=== PATIENT | male | born 1950 | race African-American/Black ===

== ENCOUNTER 2017-02-18 18:27 | Inpatient (IN) | payer OTHER, MEDICARE ==
[~2017-02-18] VITALS: Ht 170.2 cm; Wt 86.2 kg
--- NOTE | 2017-02-18 18:43 | NUR ---
REVEIVED 66 YO MALE WITH . PT COMES TO THE ED BECAUSE HIS SON THINKS HE MAY BE HAVING THOUGHTS OF HURTING HIMSELF. ACCORDING TO , PT IS HEARING VOICES. PT DENIES THOUGHT OF SUICIDE OR HEARING VOICES.
--- NOTE | 2017-02-18 19:27 | NUR ---
AT BEDSIDE TO MELVA AT THIS TIME
--- NOTE | 2017-02-18 19:38 | ED PSYCHIATRIC COMPLAINT ---
History of Present Illness General Chief Complaint: Psychiatric Related Complaint Stated Complaint: THOUGHTS OF HARMING SELF Source: patient Exam Limitations: no limitations Vital Signs & Intake/Output Vital Signs & Intake/Output Vital Signs Date Time Temp Pulse Resp B/P Pulse O2 O2 Flow FiO2 Ox Delivery Rate 02/19 1554 98.6 76 18 152/98 98 Room Air 02/19 1410 97.1 81 18 136/63 96 Room Air 02/19 1226 97.0 85 18 220/100 02/19 1121 97.0 85 18 220/100 95 Room Air 02/19 1020 85 190/82 02/19 0848 98.0 110 200/110 02/19 0631 96.6 65 16 176/80 98 Room Air 02/18 2327 96.3 80 16 186/81 97 Room Air 02/18 1929 Room Air 02/18 1855 98.6 78 18 176/98 97 Room Air ED Intake and Output 02/19 0000 02/18 1200 Intake Total 0 Output Total Balance 0 Intake, Oral 0 Patient 190 lb Weight Allergies Coded Allergies: No Known Allergies (02/18/17) Triage Note: REVEIVED 66 YO MALE WITH . PT COMES TO THE ED BECAUSE HIS SON THINKS HE MAY BE HAVING THOUGHTS OF HURTING HIMSELF. ACCORDING TO , PT IS HEARING VOICES. PT DENIES THOUGHT OF SUICIDE OR HEARING VOICES. Triage Nurses Notes Reviewed? yes HPI: Patient presents for evaluation of possible suicide ideation. The patient himself however denies any intent for suicide. Apparently he was engaging in a discussion with his son who is an CLIN APPLICATION SPECIALIST. He mentioned that he thought he heard somebody talking to him suggesting that he would by suicide. He also states that they were according Bible verses to him. He also describes a "funny pain "in the top portion of his head and a question of muffling of his voice that have now resolved. The patient denies drug or alcohol use. He is currently being treated for nervous breakdowns, schizophrenia and bipolar disorder along with diabetes and hypertension. He is compliant with medications. (TEVIN RUBALCAVA,CAR Tellez) Past History Travel History Traveled to [place] past 21 day No Medical History Any Pertinent Medical History? see below for history Neurological: CVA VS SEIZURE EENT: NONE Cardiovascular: hypertension Respiratory: NONE Gastrointestinal: NONE Hepatic: NONE Renal: NONE Musculoskeletal: NONE Psychiatric: bipolar disease Endocrine: NONE Blood Disorders: NONE Cancer(s): NONE Psychosocial History What is your primary language Iraqi Tobacco Use: Quit >30 days ago Family History Hx Contributory? No (TEVIN RUBALCAVA,CAR Tellez) Surgical History Surgical History: non-contributory (HALLIE RUBALCAVA,IRMA Pittman) Review of Systems Review of Systems Constitutional: Reports: no symptoms. EENTM: Reports: no symptoms. Respiratory: Reports: no symptoms. Cardiovascular: Reports: no symptoms. GI: Reports: no symptoms. Genitourinary: Reports: no symptoms. Musculoskeletal: Reports: no symptoms. Skin: Reports: no symptoms. Neurological/Psychological: Reports: see HPI. Hematologic/Endocrine: Reports: no symptoms. Immunologic/Allergic: Reports: no symptoms. All Other Systems: Reviewed and Negative (TEVIN RUBALCAVA,CAR Tellez) Physical Exam Physical Exam General Appearance: SEE BELOW Neurological/Psychiatric: SEE BELOW Comments: General: Alert, calm, cooperative Head: Normocephalic, atraumatic Eyes: Normal inspection, no nystagmus, EOMI Ears: Normal inspection Nose: Normal inspection Throat: Moist mucosa Neck: Supple, no goiter Heart: Regular rate and rhythm, no murmurs rubs or gallops Lungs: Clear to auscultation bilaterally with good air entry Abdomen: Soft nontender nondistended, normal bowel sounds Chest: Nontender Extremities: Normal range of motion grossly, no tremors present, no cyanosis clubbing or edema of the upper extremities Neurologic: cranial nerves II through XII grossly intact, speech clear, gait normal Psychiatric: No apparent delusions or hallucinations, no pressured speech or thought blocking SAD PERSONS Done? REFERRED TO CRISIS (TEVIN RUBALCAVA,CAR Tellez) Progress Plan of Care: Orders Procedure Date/time Status Consistent Carbohydrate 3 02/19 D Active Regular Diet 02/19 B Complete Admit to inpatient psych 02/19 1623 Active Lab Add-on Test 02/19 1406 Active Patient Data - inpatient psych 02/19 1405 Active Admit to inpatient psych 02/19 1405 Active URINE DRUG SCREEN FOR ER ONLY 02/19 0829 Complete Vital Signs 02/19 UNK Active Nursing Misc 02/19 UNK Active FingerStick- Glucose 02/19 UNK Active Alternative Nursing Therapy 02/19 UNK Active Activity/Ambulation 02/19 UNK Active Continuous Observation Monitor 02/18 2322 Active TSH REFLEX 02/18 2114 Active LIPID PANEL 02/18 2114 Active GLYCOSYLATED HGB 02/18 2114 Active ETHANOL 02/18 2100 Active CBC WITHOUT DIFFERENTIAL 02/18 2100 Complete BASIC METABOLIC PANEL 02/18 2100 Active ED CRISIS PSYCH CONSULT 02/18 2100 Active Intake & Output 02/18 1925 Active Current Medications Sig/Neel Start time Last Medication Dose Stop Time Status Admin Amlodipine Besylate 10 MG DAILY 02/20 1000 AC (Norvasc) Perphenazine 8 MG DAILY@0800 02/20 0800 CAN (Trilafon) Lamotrigine 200 MG BID 02/19 2200 AC (LaMICtal) Perphenazine 24 MG AT BEDTIME 02/19 2200 AC (Trilafon) Acetaminophen 650 MG Q6P PRN 02/19 141 AC (Tylenol) Al Hydroxide/Mg 30 ML Q4-6 PRN PRN 02/19 141 AC Hydroxide (Maalox Plus) Benztropine Mesylate 1 MG Q6P PRN 02/19 141 AC (Cogentin 1 MG Tablet) Gabapentin 300 MG Q4P PRN 02/19 141 AC (Neurontin) Magnesium Hydroxide 30 ML AT BEDTIME PRN 02/19 141 AC (Milk Of Magnesia) Trazodone HCl 50 MG AT BEDTIME NEED.. 02/19 141 AC (Desyrel) Laboratory Tests 02/19/17 1115: Urine Opiates Screen < 100.00, Methadone Screen < 40, Barbiturate Screen < 60, Ur Phencyclidine Scrn < 6.00, Amphetamines Screen < 100, U Benzodiazepines Scrn < 85, Urine Cocaine Screen < 50, Urine Cannabis Screen < 5.00 02/18/172113: Anion Gap 9, Estimated GFR 35 L, BUN/Creatinine Ratio 11.6, Glucose 225 H, Hemoglobin A1c Pending, Calcium 9.0, Triglycerides 155 H, Cholesterol 180, LDL Cholesterol, Calc 104, HDL Cholesterol 45, Cholesterol/HDL Ratio 4, TSH &T3 & Free T4 Intrp 1.480, CBC w Diff NO MAN DIFF REQ, RBC 4.23 L, MCV 80.7, MCH 27.5 , RDW 15.1 H, MPV 7.5, Gran % 69.9, Lymphocytes % 23.0, Monocytes % 4.4, Eosinophils % 1.8, Basophils % 0.9, Absolute Granulocytes 4.5, Absolute Lymphocytes 1.5, Absolute Monocytes 0.3, Absolute Eosinophils 0.1, Absolute Basophils 0.1, PUBS MCHC 34.1, Serum Alcohol < 10.0 Differential Diagnosis: depression, drug abuse, etoh vs other. Hand-Off Endorsed To: CAR HOLLINGSWORTH DO Endorsed Time: 0700 Pending: consult (HALLIE RUBALCAVA,IRMA Pittman) Departure Departure Disposition: STILL A PATIENT Condition: Stable Clinical Impression Primary Impression: Schizophrenia Qualifiers: Schizophrenia type: unspecified Qualified Code: F20.9 - Schizophrenia, unspecified Secondary Impressions: Anemia Qualifiers: Anemia type: unspecified type Qualified Code: D64.9 - Anemia, unspecified Renal insufficiency Referrals: RITA RUBALCAVA,SHYANN Lima (PCP/Family) Departure Forms: Customer Survey General Discharge Information (TEVIN RUBALCAVA,CAR Tellez) Departure Comments 02/19/17 1:27 PM The patient was signed out to me by Dr. Hernandez at 7 AM. He is pending evaluation by crisis. He did have an elevated glucose and elevated blood pressure. He was treated with his amlodipine and given 8 units of regular insulin. 02/19/17 4:24 PM The patient's glucose is coming down, his blood pressures has come down he is being admitted to Inpatient Psychiatry. (CAR HOLLINGSWORTH DO)
--- NOTE | 2017-02-18 21:20 | NUR ---
LABS SENT (1SST,1LAV)
[2017-02-18 21:21] LABS: ABSOLUTE BASOPHIL COUNT 0.1 /CUMM (0.0-0.2); ABSOLUTE EOSINOPHIL COUNT 0.1 /CUMM (0.0-0.7); ABSOLUTE GRANULOCYTE CT 4.5 /CUMM (1.4-6.5); ABSOLUTE LYMPH COUNT 1.5 /CUMM (1.2-3.4); ABSOLUTE MONOCYTE COUNT 0.3 /CUMM (0.10-0.60); BASOPHIL % 0.9 % (0.0-2.0); EOSINOPHIL % 1.8 % (0-5); GRANULOCYTE % 69.9 % (42.2-75.2); HEMATOCRIT 34.1 % (42-52); MEAN CORPUSCULAR HGB 27.5 PG (27.0-31.0); MEAN CORPUSCULAR HGB CONC 34.1 G/DL (33.0-37.0); MEAN CORPUSCULAR VOLUME 80.7 FL (80.0-94.0); MEAN PLATELET VOLUME 7.5 FL (7.4-10.4); PLATELET COUNT 194 /CUMM (130-400); RBC DISTRIBUTION WIDTH 15.1 % (11.5-14.5); RED BLOOD CELL CT 4.23 /CUMM (4.70-6.10); WHITE BLOOD CELL COUNT 6.5 /CUMM (4.8-10.8)
--- NOTE | 2017-02-18 21:36 | NUR ---
FIRE CREW SPECIALIST MEETING WITH PT AT THIS TIME.
--- NOTE | 2017-02-18 22:51 | ED PSY CRISIS COLLATERAL NOTE ---
Collateral Note Collateral Note Family/Inform/Canelo Contacts: collateral provided by pt byron jarquin [phone]. She reports being to pt for 47 yrs. She reports past 45 yrs pt has struggled with mental illness. she reports he has had several psychiatric hospitalizations over the yrs. she reports the past 6 yrs have been progressively most difficult as pt has been more combative verbally and physically threatening. She reports pt is becoming more isolative/withdrawn and delusional. she reports he talks for hrs with imaginary people. She is concerned that pt is gravely disabled and no longer able to care for himself and she doesn't know how much longer she can reside in the home with him due to his constant yelling, threatening and accusations. She thinks pt needs to be in an assisted living setting with 24 hr care/supervision. she reports he came to ED this evening because he reported to his son over the phone today that he is hearing voices telling him his life is going to end by suicide.
--- NOTE | 2017-02-19 | NUR ---
PT RESTING COMFORTABLY ON STRETCHER. AWAKE, ALERT AND ORIENTED. CALM AND COOPERATIVE. PROVIDED WITH WATER.
--- NOTE | 2017-02-19 01:50 | NUR ---
PT ASLEEP AT THIS TIME WITH REGULAR RR. WILL CTM.
--- NOTE | 2017-02-19 03:47 | NUR ---
PT CONTINUES TO SLEEP WITH REGULAR RR. NO ACUTE DISTRESS NOTED. SITTER AT BEDSIDE
--- NOTE | 2017-02-19 06:32 | NUR ---
AWAKENED FOR VS OFFERS NO COMPLAINTS.
--- NOTE | 2017-02-19 07:21 | NUR ---
PT SLEEPING AT THIS TIME. REG RESP RATE NOTED. SITTER REMAINS PRESENT. WILL CTM
--- NOTE | 2017-02-19 08:30 | NUR ---
Crisis waiting on UTOX to be completed.
--- NOTE | 2017-02-19 08:52 | NUR ---
PT CLAPPING HANDS LAYING ON STRETCHER AT THIS TIME, PT STATING "IM JUST PRAYING" WHEN ASKED PT IF HE WOULD LIKE TO EAT BREAKFAST TRAY PT RESPONDS "IM ON A FAST RIGHT NOW, IM NOT EATING" LARA REMAINS PRESENT, MD AWARE
--- NOTE | 2017-02-19 09:06 | ED PSY CRISIS COLLATERAL NOTE ---
Collateral Note Collateral Note Family/Inform/Canelo Contacts: Clinician called Dr. Lopez PCP for collateral information and left a voice mail. [phone] Hernandez - pt's psychiatrist.
--- NOTE | 2017-02-19 09:19 | NUR ---
PT'S SON CALLED TO SPEAK WITH PT. ASKED PT IS HE WOULD LIKE TO SPEAK WITH SON AND PT SAID "I WILL CALL HIM BACK."
--- NOTE | 2017-02-19 10:22 | NUR ---
PT REMAINS HYPERTENIVE. AWARE. AWAITING ORDERS
--- NOTE | 2017-02-19 10:32 | NUR ---
PT AWARE OF NEED FOR URINE SAMPLE. PER PT HE WILL TRY TO GO IN A FEW
--- NOTE | 2017-02-19 11:22 | NUR ---
URINE COLLECTED AND SENT TO LAB BY MILAGRO CARSON
--- NOTE | 2017-02-19 11:50 | NUR ---
Crisis attempted to complete eval. Pt requested winery worker come back later.
--- NOTE | 2017-02-19 12:26 | NUR ---
PT MEDICATED PER EMAR AT THIS TIME
--- NOTE | 2017-02-19 12:43 | ED PSYCH CRISIS CONSULTATION ---
Crisis Consult Basic Assessment Date of Consult: 02/19/17 Responsible Person/Accompanied By: Insurance Authorization: Insurance #1: Insurance name: MEDICARE A Phone number: Policy number: [id number] Group number: Authorization number: ED Provider: Patient's ED Provider: CAR ABARCA MD Primary Care Physician: Patient's PCP: SHYANN SALINAS MD PCP's Current Psychiatrist: Dr. Hernandez Chief Complaint: Psychiatric Related Complaint Patient's Quote: " When can I leave?" Present Illness: Pt is 66 yomarried male with hx of schizophrenia. He was brought to the ED by his who reports he has been . His UTOX is negative for substances. Pt is responding to internal stimuli ( singing, laughing and talking to self ) however denies these behaviors. Per pt , his family is concerned because a voice was telling him he would by suicide. This signwriter asked how long he has heard theses voices and he stated this was the first encounter. Pt appears to be minimizing AVH symtpoms. Per collateral with his and son Winston on the phone: Family denies hx of domestic violence and physically abuse. He believes multiple people come to the house. He was hospitalized 4 months ago in November for a month [facility] psych unit [facility]term. Pt presents with paranoia at home and thinks people are out to get him. Zoranna feels her safety is at risk because he is associating her with his paranoid delusions but he is verbally abusive- daily. Pt appears to take medications as prescribed. He had Vna for a month but insurance did not cover extended coverage. They are applying for medicaid. Winston Jr thinks the main issue is the medications. feels he is gravely disabled, he puts something on the stove and walks away. pt is also unsteady on his feet sometimes so they are trying to keep him driving and keep the keys from him. Family reports hx of him saying the voices tell him to kill himself. Pt has never attempted suicide. is very concerned as the pt thinks she is apart of this whole thing and pt has limited supports. Per family report his current medications: risperdol 3 mg 1 tab 2x daily seroquel 25 mg 1-2 by mouth at bed time trazadone 50 mg - talke 1 1/2 25 mg at bed time perpahnazine- 8 mg 3 tabs at bed time pt has 2 bottles of it the other say 16 mg type 2 diabetes insulin- [address] Arsalan Hernandez is on vacation but Dr. Mcdonald is psychiatric nurse practitioner : [phone] . This signwriter left a message for both providers. Patient's Address: [address] [place] [address] Other Phone Number: Who Do You Live With? Spouse Family/Informants Interviewed: Everna- Winston dorsey- son Allergies - Coded Allergies: No Known Allergies (02/18/17) Past History Past Medical History Neurological: CVA VS SEIZURE EENT: NONE Cardiovascular: hypertension Respiratory: NONE Gastrointestinal: NONE Hepatic: NONE Renal: NONE Musculoskeletal: NONE Psychiatric: bipolar disease Endocrine: NONE Blood Disorders: NONE Cancer(s): NONE Past Surgical History Surgical History: non-contributory Psychosocial History Strengths/Capabilities: Pt is seeking inpatient tx for mood stabilization and safety. Physical Limitations (Interventions): unknown Psychiatric Treatment History Psych Treatment Psychiatric Treatment Yes Inpatient Treatment Yes Outpatient Treatment Yes Location of Treatment Dr. Hernandez in [facility] Reason for Treatment psych Dates of Treatment 1999- current Response to Treatment fair Diagnosis by History: schizophrenia Substance Use/Abuse History Drug Use/Abuse Substances Used/Abused No Substance Abuse Treatment Substance Abuse Treatment Past Substance Abuse [place] No Inpatient Treatment No Outpatient Treatment No Comments: Pt reports he has not used substances in over 40 years. Current Mental Status Mental Status Orientation: Confused Affect: WNL Speech: Mumbled, WNL Neuro-vegetative: Sleep Disturbance Appearance Appearance- Dress/Hygiene: Pt is dressed in [facility] gown, hygiene is fair. Behaviors Thought Process: Irrational Thought Content: Auditory Hallucinations, Delusions, Paranoid, Visual Hallucinations Memory: Impaired Insight: Poor SI/HI Risk Assessment Past Suicidal Ideation/Attempts Yes Current Suicidal Ideation/Att No Past Homicidal Ideation/Att: No Current Homicidal Ideation/Attempts No Degree of Intent: Pt said a command voice told him he would by suicide. Danger To: Self Gravely Disabled: Lack of Insight, Poor Judgment Risk Factors: age (under 24/over 65), SA/MH hospitalized, isolate/no social support, male, limited support Lethality Ratin PTSD Checklist PTSD Done? pt unable to participate ED Management Sitter: Yes Restraints: No DSM5/PS Stressors/Medical Prob Diagnosis' (DSM 5, Stressors, Medical): F20.89 Schizophrenia medical: type 2 diabetes psychosocial: problems with primary supports, limited social supports Current GAF: 25 Comments: Pt is observed to respond to AVH. He appears to minimize his symptoms and denies visual hallucinations. Pt disclosed hearing a command voice telling him he would by suicide. Departure Disposition Psych Medical Clearance Date: 02/19/17 Medically Cleared at: 1145 Time Started: 1145 Time Ended: 1245 Psychiatrist Consulted: Gerson Celestin MD Date Disposition Established: 02/19/17 Time Disposition Established: 1330 Plan for Disposition - Modality: Inpatient Psychiatry Facility: [facility] Contact: CPS Rationale for Disposition: Pt presents with AVH ( talking to himself, laughing and singing in his room). He reported a command voice told him he would by suicide. Pt appears to minimize symptoms of schizophrenia. The reports her concern for her safety as his paranoid delusions are associated with her and he accuses her verbally. She stated he reports that people come into the apartment and she is one of them. Dr. Celestin was consulted and recommends inpatient treatment. The pt initially was in disagreement with signing in voluntary but spoke with his family and thought it was best to receive treatment at this time for mood stabilization and safety. Type of IP Admission: Voluntary Referrals RITA RUBALCAVA,SHYANN Lima (PCP/Family)
--- NOTE | 2017-02-19 14:48 | IP CRISIS DIAG ASSESS PSYCH ---
Diagnostic Assessment Basic Assessment Insurance Authorization: Insurance #1: Insurance name: MEDICARE A [employer] Phone number: Policy number: [id number] Group number: Authorization number: QMB - no authorization required Primary Care Physician: Patient's PCP: SHYANN SALINAS MD PCP's Patient's Quote: " When can I leave?" Present Illness: Pt is 66 yomarried male with hx of schizophrenia. He was brought to the ED by his who reports he has been . His UTOX is negative for substances. Pt is responding to internal stimuli ( singing, laughing and talking to self ) however denies these behaviors. Per pt , his family is concerned because a voice was telling him he would by suicide. This blog writer asked how long he has heard theses voices and he stated this was the first encounter. Pt appears to be minimizing AVH symtpoms. Per collateral with his and son Winston on the phone: Family denies hx of domestic violence and physically abuse. He believes multiple people come to the house. He was hospitalized 4 months ago in November for a month [facility] psych unit senior care. Pt presents with paranoia at home and thinks people are out to get him. Deon feels her safety is at risk because he is associating her with his paranoid delusions but he is verbally abusive- daily. Pt appears to take medications as prescribed. He had Vna for a month but insurance did not cover extended coverage. They are applying for medicaid. Winston Jr thinks the main issue is the medications. feels he is gravely disabled, he puts something on the stove and walks away. pt is also unsteady on his feet sometimes so they are trying to keep him driving and keep the keys from him. Family reports hx of him saying the voices tell him to kill himself. Pt has never attempted suicide. is very concerned as the pt thinks she is apart of this whole thing and pt has limited supports. Per family report his current medications: risperdol 3 mg 1 tab 2x daily seroquel 25 mg 1-2 by mouth at bed time trazadone 50 mg - talke 1 1/2 25 mg at bed time perpahnazine- 8 mg 3 tabs at bed time pt has 2 bottles of it the other say 16 mg type 2 diabetes insulin- [address] Arsalan Hernandez is on vacation but Dr. Mcdonald is lockstitch front edge tape sewer : [phone] . This blog writer left a message for both providers. Patient's Address: [address] [place] [address] Other Phone Number: Who Do You Live With? Spouse Feel Safe Where You Live? Yes Feel Safe in Your Relationship Yes Marital Status: Do You Have Children? Yes Ages? 40 and 50's Primary Language? Monegasque Language(s) Spoken At Home: Monegasque Family/Informants Interviewed: Everna- Winston dorsey- son Allergies - Coded Allergies: No Known Allergies (02/18/17) Past History Abuse/Trauma History Trauma History/Current Trauma: Denies Legal History Current Legal Status: none Psychosocial History Strengths/Capabilities: Pt is seeking inpatient tx for mood stabilization and safety. Physical Limitations (Interventions): unknown Psychiatric Treatment History Psych Treatment Psychiatric Treatment Yes Inpatient Treatment Yes Outpatient Treatment Yes Location of Treatment Dr. Hernandez in [facility] Reason for Treatment psych Dates of Treatment 1999- current Response to Treatment fair Diagnosis by History: schizophrenia Risk Factors: age (under 24/over 65), SA/MH hospitalized, isolate/no social support, male, limited support Substance Use/Abuse History Drug Use/Abuse minimum 12mo Hx Substances Used/Abused No Substance Abuse Treatment Substance Abuse Treatment Past Substance Abuse [place] No Inpatient Treatment No Outpatient Treatment No Comments: Pt reports he has not used ETOH or cannabis in over 40 years. Sexual History Sexually Active No # of partners 0 Sexual Orientation Heterosexual Use of Protection No Sexual Concerns: No Education History Highest Level of Education: master's degree, Pt reports he also earned a PHD Preferred Learning Style: visual, auditory Current Mental Status Mental Status Orientation: Confused Affect: WNL Speech: Mumbled, WNL Neuro-vegetative: Sleep Disturbance Appearance Appearance- Dress/Hygiene: Pt is dressed in [facility] gown, hygiene is fair. Behaviors Thought Process: Irrational Thought Content: Auditory Hallucinations, Delusions, Paranoid, Visual Hallucinations Memory: Impaired Insight: Poor SI/HI Risk Assessment - Minimum 6mo History- Past Suicidal Ideation/Attempts Yes Current Suicidal Ideation/Att No Past Homicidal Ideation/Att: No Current Homicidal Ideation/Attempts No Degree of Intent: Pt said a command voice told him he would by suicide. Danger To: Self Gravely Disabled: Lack of Insight, Poor Judgment Risk Factors: age (under 24/over 65), SA/MH hospitalized, isolate/no social support, male, limited support Lethality Ratin Needs/Init TX Plan/Goals: Inpatient treatment for mood stabilization and safety, medication evaluation , group and individual therapy, family meeting and psychoeducation. AUDIT-C Questionnaire: AUDIT-C Questionnaire: Response Value ETOH use in the past year Never 0 # drinks typical/day Doesn't Drink 0 6 or > drinks per occasion Never 0 Total 0 DSM5/PS Stressors/Medical Prob Diagnosis' (DSM 5, Stressors, Medical): F20.89 Schizophrenia medical: type 2 diabetes psychosocial: problems with primary supports, limited social supports Current GAF: 25 Comments: Pt is observed to respond to AVH. He appears to minimize his symptoms and denies visual hallucinations. Pt disclosed hearing a command voice telling him he would by suicide.
--- NOTE | 2017-02-19 15:16 | SOCIAL WORKER SOCIAL HX PSYCH ---
Social History Basic Assessment Insurance Authorization: Insurance #1: Insurance name: [employer] [facility] Phone number: Policy number: [id number] Group number: Authorization number: [id number] no authorization required Curr Source of Income/Entitlements: SSDI, SSI Primary Care Physician: Patient's PCP: SHYANN SALINAS MD PCP's Present Problem: Pt is 66 yomarried male with hx of schizophrenia. He was brought to the ED by his who reports he has been . His UTOX is negative for substances. Pt is responding to internal stimuli ( singing, laughing and talking to self ) however denies these behaviors. Per pt , his family is concerned because a voice was telling him he would by suicide. This technical proposal writer asked how long he has heard theses voices and he stated this was the first encounter. Pt appears to be minimizing AVH symtpoms. Per collateral with his and son Winston on the phone: Family denies hx of domestic violence and physically abuse. He believes multiple people come to the house. He was hospitalized 4 months ago in November for a month [facility] psych unit half-way. Pt presents with paranoia at home and thinks people are out to get him. Zoranna feels her safety is at risk because he is associating her with his paranoid delusions but he is verbally abusive- daily. Pt appears to take medications as prescribed. He had Vna for a month but insurance did not cover extended coverage. They are applying for medicaid. Winston Jr thinks the main issue is the medications. feels he is gravely disabled, he puts something on the stove and walks away. pt is also unsteady on his feet sometimes so they are trying to keep him driving and keep the keys from him. Family reports hx of him saying the voices tell him to kill himself. Pt has never attempted suicide. is very concerned as the pt thinks she is apart of this whole thing and pt has limited supports. Per family report his current medications: risperdol 3 mg 1 tab 2x daily seroquel 25 mg 1-2 by mouth at bed time trazadone 50 mg - talke 1 1/2 25 mg at bed time perpahnazine- 8 mg 3 tabs at bed time pt has 2 bottles of it the other say 16 mg type 2 diabetes insulin- [address] Arsalan Hernandez is on vacation but Dr. Mcdonald is health commissioner : [phone] . This technical proposal writer left a message for both providers. Primary Language? Honduran Language(s) Spoken At Home: Honduran Living Situation Rents or Owns Home? owns Feel Safe Where You Are Living Yes Feel Safe in Relationships? Yes Comments: Pt has been for 40 years. Allergies - Coded Allergies: No Known Allergies (02/18/17) Past History Past Medical History Neurological: CVA VS SEIZURE EENT: NONE Cardiovascular: hypertension Respiratory: NONE Gastrointestinal: NONE Hepatic: NONE Renal: NONE Musculoskeletal: NONE Psychiatric: bipolar disease Endocrine: NONE Blood Disorders: NONE Cancer(s): NONE Past Surgical History Surgical History: non-contributory /Family History Place/Country of Origin: [place] Childhood Family Constellation: Pt reports a happy childhood with his mother. He stated he grew up as an only child. His parents were never and his father was not involved. Primary Childhood Caretakers: mother Family Life During Childhood: Pt reports a happy child llamas. He said his mother kept him in line. DCF Involvement? No Mother's Age (Current/): 90 (mother is ) Relationship w/Mother: Good relationship. Mom is now. Relationship w/Father: Father was not involved. Any Sibling(s)? No Relationship w/Friends: Pt has limited social supports. Family Psych/Sub Abuse/Add Hx: Pt denies family history of MH/SA and self harming behaviors. Abuse/Trauma History Trauma History/Current Trauma: Denies Legal History Current Legal Status: none Pending Court Dates: Denies Have you ever been arrested No Hx of Juvenile Legal Charges? No Hx of Adult Legal Charges? No Civil Proceedings: Denies Domestic Relations Court: Denies Child Protective Serv Involvmnt Denies Telesales Advisor Denies Psychosocial History Primary Support System: , daughter, son Strengths/Capabilities: Pt is seeking inpatient tx for mood stabilization and safety. Weaknesses: insight into illness Physical Limitations (Interventions): unknown Last Physical: 2016 History of Seizures? No History of Blackouts? No ADL Limitations: Denies issues [place]/Social/Peer Relations limited Meaningful Activities: Reading Childhood Restoration: Amish Current Congregation Affiliation: Amish Is Spirituality Important to You? Very important. Pt stated he is a born again Amish Patient's Ethnicity: Cultural/Ethnic Issues: No Are There Developmental Issues? No Milestones Achieved: fine motor, gross motor Psychiatric Treatment History Psych Treatment Inpatient Treatment Yes Outpatient Treatment Yes Location of Treatment Dr. Hernandez in [facility] Reason for Treatment psych Dates of Treatment 1999- current Response to Treatment fair Current Psychiatric Orderly: Dr. Hernandez Treatment of Prior Episodes: [facility] - half-way Diagnosis: schizophrenia Psychodynamic Issues: unable to assess Risk Factors: age (under 24/over 65), SA/MH hospitalized, isolate/no social support, male, limited support Substance Use/Abuse History Drug Use/Abuse Substance Used/Abused Alcohol First Use teens Last Used 24 yo How much used/taken minimal How often socially For how long 10 years Route of use oral Have Had Periods of Sobriety? 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 No Explain: Pt has obstained from using ETOH and substances Have You Ever Attended AA? No Do You Attend AA Currently? No Do You Have a Sponsor? No Other Community Resources Used: None Symptoms of Use: Pt reports no issues with substances as he has found god. Substance Abuse Treatment Substance Abuse Treatment Inpatient Treatment No Outpatient Treatment No Sexual History Sexually Active No # of partners 0 Sexual Orientation Heterosexual Use of Protection No Sexual Concerns: No Education History Highest Level of Education: master's degree, Pt reports he also earned a PHD Highest Grade Completed: Pt reports hD in Theology Vocational Year Completed: NA Number of College Years: 4 College Degree/Major: theology Preferred Learning Style: visual, auditory HX of Learning Difficulties: None reported Barriers to Learning: None reported Special Communication Needs: None reported Employment History Employment Disability Not in Labor Force: Disabled Vocation/Occupational Hx: [employer] No. of Jobs in Last 5 Years: 0 Attendance: Normal Performance: Good Comments: Pt reports being retired since his 50's and living on both SSI and SSDI. History Have You Been in The ? No Current Mental Status Mental Status Orientation: Confused Affect: WNL Speech: Mumbled, WNL Neuro-vegetative: Sleep Disturbance Appearance Appearance- Dress/Hygiene: Pt is dressed in blue hospital gown, hygiene is fair. Behaviors Thought Process: Irrational Thought Content: Auditory Hallucinations, Delusions, Paranoid, Visual Hallucinations Memory: Impaired Insight: Poor SI/HI Risk Assessment Past Suicidal Ideation/Attempts Yes Current Suicidal Ideation/Att No Past Homicidal Ideation/Att: No Current Homicidal Ideation/Attempts No Degree of Intent: Pt said a command voice told him he would by suicide. Danger To: Self Gravely Disabled: Lack of Insight, Poor Judgment Risk Factors: Age (under 24 or over 65), High Anxiety/Distress, SA/MH Hospitalization(s), Isolated/no social suppor, Male Lethality Ratin - Conclusion and Recommendations for treatment - and discharge planning Summary: Pt is 66 yomarried male with hx of schizophrenia. He was brought to the ED by his who reports he has been . His UTOX is negative for substances. Pt is responding to internal stimuli ( singing, laughing and talking to self ) however denies these behaviors. Per pt , his family is concerned because a voice was telling him he would by suicide. This technical proposal writer asked how long he has heard theses voices and he stated this was the first encounter. Pt appears to be minimizing AVH symtpoms. Per collateral with his and son Winston on the phone: Family denies hx of domestic violence and physically abuse. He believes multiple people come to the house. He was hospitalized 4 months ago in November for a month [facility] psych unit half-way. Pt presents with paranoia at home and thinks people are out to get him. Deon feels her safety is at risk because he is associating her with his paranoid delusions but he is verbally abusive- daily. Pt appears to take medications as prescribed. He had Vna for a month but insurance did not cover extended coverage. They are applying for medicaid. Winston Jr thinks the main issue is the medications. feels he is gravely disabled, he puts something on the stove and walks away. pt is also unsteady on his feet sometimes so they are trying to keep him driving and keep the keys from him. Family reports hx of him saying the voices tell him to kill himself. Pt has never attempted suicide. is very concerned as the pt thinks she is apart of this whole thing and pt has limited supports. Pt is agreeable to volunatiry admission for mood stabilization and safety.
--- NOTE | 2017-02-19 15:59 | NUR ---
PTS BP 152/98 MANUAL AT THIS TIME. MD AWARE AND PER MD PT OK TO GO TO [facility]. PT EAITNG GRILLED CHEESE AT THIS TIME. DENIES PAIN. OFFERS NO COMPLAINTS.
--- NOTE | 2017-02-19 16:36 | NUR ---
FBG 258 COVERED WITH 5 UNITS REGULAR INSULIN PER EMAR. REPORT CALLED TO MARYANNE SEARS. DISTRIBUTION CALLED FOR PT TRANSPORT.
[2017-02-19] MEDS ORDERED: PERPHENAZINE8 M1 PO (16:53)
[2017-02-19] MEDS ORDERED: RISPERDAL3 M1 PO (16:54)
[2017-02-19] MEDS ORDERED: SEROQUEL25 M1 PO (16:55)
[2017-02-19] MEDS ORDERED: TRAZODONE HCL50 M1 PO (17:07)
[2017-02-19] MEDS ORDERED: HUMALOG100 UNIT/2 SC (17:08)
[2017-02-19] MEDS ORDERED: LANTUS SOL100 UNIT/1 SC (17:08)
[2017-02-19 17:13] VITALS: BP 158/90
--- NOTE | 2017-02-19 17:40 | NUR ---
PT ARRIVED TO [facility] CALM, COOPERATIVE, PLEASANT, RESPECTFUL A&0 X 4. PT UNABLE TO FULLY RECONCILE MEDICATIONS, HOWEVER PRIOR TO ARRIVAL @ ABOUT 1630 BLOOD SUGAR PER EMERGENCY ROOM = 258 AND WAS COVERED WITH 5 UNITS OF REGULAR INSULIN AND DR. LIMA'S OFFICE NOTIFIED FOR A CALL BACK RE: FURTHER DIABETIC MEDICATIONS/ORDERS TODAY @ 1725. SKIN THAT IS VISIBLE IS CLEAN DRY AND INTACT AND DENIES ANY OTHER ALTERATION TO SKIN THAT IS NOT VISIBLE. MOOD IS STABLE WITH FULL RANGE/APPROPRIATE AFFECT. PT DID A FEW TIMES GO OFF ON SIKHISM TANGENTS AND ASKED THIS RN "WHAT WILL YOU DO ABOUT KELSEA? HE SAVED ME, MAKING A CHOICE TO NOT MAKE A CHOICE...IS A CHOICE" BUT ABLE TO BE EASILY REDIRECTED. WHEN ASKED DIRECTLY PT DENIES SI/HI AND WENT ON TO REPORT THAT HE WAS NOT SUICIDAL AND ONLY MADE A COMMENT RE: THAT LAST WEEK WHEN "SOME ONE ELSE SAID THAT" (+AH?) AND IS SAVED BY KELSEA SINCE 44 YEARS AGO AND LOVES HIS LIFE. HE DOES ADMIT TO FEELING LONELY AND FRUSTRATED D/T BEING "STUCK" AT HOME AND HAVING LIMITED FREEDOM SINCE HE CAN'T DRIVE (SINCE HX OF TIA/CVA/SEIZURE?). PT DENIES ANY FORM OF HALLUCINATIONS AND NOTHING OVERT TRULY NOTED, JUST WHISPERING/TALKING UNDER HIS BREATH INTERMITTENTLY. REPORTS FEELS GOOD OVERALL, + SLEEP/APPETITE, NO ISSUES OR COMPLAINTS.
--- NOTE | 2017-02-19 18:41 | NUR ---
DR. LIMA CALLED THE UNIT BACK AND THIS RN NOTIFIED HIM RE: THE NEED FOR INSULIN ORDERS AND PER MD FOR THIS UNIVERSITY DEMONSTRATOR TO CALL PT'S PHARMACY AND RECONCILE DIABETIC MEDICATION AND WILL BE ON UNIT LATER FOR ORDERS. HOWEVER THE [facility] LISTED ON FILE HASN'T FILLED A SCRIPT SINCE NOVEMBER AND THE PT WAS FOLLOWED UP WITH AGAIN AND PT REPORTED NOT USING THAT [facility] IN AWHILE AND USING A MAIL ORDER SYSTEM AND STATES THAT HE TAKES: LANTUS 15 UNITS NIGHTLY & HUMALOG PER SLIDING SCALE (BLOOD SUGAR) WILL PASS IN REPORT WELL.
[2017-02-19 20:08] VITALS: BP 154/80
--- NOTE | 2017-02-19 20:38 | NUR ---
PT IS VISIBLE ON UNIT, SPENDING TIME WITH VISITORS IN KITCHEN. PT IS SOCIAL WITH PEERS AND STAFF, VERY COOPERATIVE AND COMPLIANT. NO COMPLAINTS OR SI REPORTED. PT HAS A STABLE MOOD AND FULL RANGE AFFECT.
--- NOTE | 2017-02-20 04:50 | NUR ---
PT READING BIBLE WHILE AWAKE. PT QUIET AND COOPERATIVE. PT'S AND SON VISITED ON EVENINGS- VISIT APPEARED TO GO WELL. PT APPEARED TO SLEEP WELL.
[2017-02-20 08:13] VITALS: BP 163/80
--- NOTE | 2017-02-20 12:00 | SOCIAL WORKER PROG NOTE PSYCH ---
Social Work Progress Note Progress Note Patient was seen individually and he was relaxed and said he enjoyed the discussion. He talked about his work history with [employer], and that he had done well , but did not make the big money. He states they have a nice paid for house in [place]. Patient emphasized that he is "born again", so he talked with me, rather thabn go to accupuncture, because that is against his yazidism. He state that he and his are 46 years, but, unfortunately, he stated that he was not sexually capable any longer, and this was a big negative. He did think that his may well be involved in a conspiracy against him. He did not want to elaborate with that at this point. Patient reports that he first was treated at age 23, and he stated that he thought he was considered bipolar. He is from [place], and says that even now the lack of more sunlight probably makes him blue. He has no desire to leave his home in [place]. Patient spoke proudly of his 3 kids one of whom is an COMB FIXER, and the other 2 are in college. Patient stated that he felt comfortable here, and that he was willing to consider IOP (here or elsewhere), as he admits he has too little to do.
[2017-02-20 12:42] VITALS: BP 135/75
--- NOTE | 2017-02-20 14:12 | NUR ---
PT IS COMPLIANT AND COOPERATIVE. MOOD IS STABLE WITH A CONSTRICTED AFFECT. PT DENIES SI AT THIS TIME, NO COMPLAINTS OFFERED. PT REMAINS RELIGIOUSLY PRE-OCCUPIED, PRAYING FREQUENTLY AND STATING THAT HE IS "ON A FAST". PT NOT OBSERVED TALKING TO SELF/RESPONDING TO INTERNAL STIMUILI. PT FACSILLATES BETWEEN BEING WITHDRAWN IN BED AND BEING PRESENT IN THE COMMUNITY. PT HAS SOME INTERACTION WITH PEERS AND STAFF. PT IS ATTENDING SOME GROUPS. VITALS ARE STABLE, APPETITE IS FAIR.
[2017-02-20 16:00] VITALS: BP 157/94
--- NOTE | 2017-02-20 16:01 | SOCIAL WORKER TX PLAN PSYCH ---
Treatment Plan - Please Document: - Evidence that there is ongoing collaboration between - the patient and the interdisciplinary team, - including the patient's active participation and - responsibility for engaging in the treatment regimen, - and that the treatment plan is individualized and - relevant to the patient's conditions. - Treatment plan should reflect documentation indicating - that all active therapeutic efforts are included. Strengths/Capabilities: Pt is seeking inpatient tx for mood stabilization and safety. Physical Limitations (Interventions): unknown DSM5/PS Stressors/Medical Prob Diagnosis' (DSM 5, Stressors, Medical): F20.89 Schizophrenia medical: type 2 diabetes psychosocial: problems with primary supports, limited social supports Current GAF: 25 Treatment Team - Responsibilities of members of the treatment team include: - Medication Management- MD or AREA LOSS PREVENTION MANAGER - Medication Administration and Monitoring- Nurse - Group Therapy- Occupational Therapist - 1:1 Therapy,Disch Planning,family involvement-Chief Nurse Executive
--- NOTE | 2017-02-20 16:10 | CPS MD/APRN INITIAL ASSE PSYCH ---
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 Chief Complaint: "When can I leave?" Reaction to Hospitalization: Though apparently ambivalent with regard to coming into hospital initially patient is currently of the opinion that his medications (as well as his relationship with ) might be looked into while he is with us; however, he is still guarded (?paranoid) with regard to speaking at all freely about all that is bothering him. He also does not like to have to repeat all the details of his concerns to everyone he meets here; his frustration is fully understandable. History of Present Illness Onset of Illness: Patient's family (especially and son) have noted him to be increasingly suspicious/paranoid recently, speaking of "people coming into" the house and voice telling him he should kill himself (does not feel in any way compelled to act on this voice but is disturbed by the experience which he said has occurred for the first time recently, but family describe as also having happened at times in the past. Circumstances Leading to Admission: Unclear at present. Patient states daughter has been in the home for some time (perhaps 2 years now) and denies any tensions building in his relationship with her; however, his guardedness, suspiciousness, paranoid ideation related to of almost 50 years may indicate some personal issue projected onto her; patient did tell another interviewer he was "no longer able to 'perform' with [his] " which might indicate a personal or interpersonal difficulty (?performance vs. problem in relationship affecting performance vs. physical issues interpreted as interpersonal ones--patient is 66, diabetic and hypertensive and on various meds ). Problem(s) Justifying Need for Admission: command auditory hallucinations instructing patient to kill himself Other HPI: Patient has been having subacute difficulties for at least some months now, having been inpatient earlier this year at the psychiatric unit of [facility] (?in [facility]) We need to obtain discharge summary from that facility. Past Psychiatric History Past Diagnosis(es)- if any: "schizophrenia" had been listed but is clearly not patient's diagnosis Past Precipitating Factors- if any: not clear at this time but may go back to some time in 2016 with recent psychiatric admission in 11/2016 - Include inpatient and outpatient treatment Treatment History: Patient notes first having "a nervous breakdown" at age 23, possibly in the midst of full-time work, plus going to graduate school; this would more likely support a bipolar spectrum disorder type of history. He has been seeing a Dr. 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'") Allergies: Coded Allergies: No Known Allergies (02/18/17) Home Med List: as recorded on Social History (listed as "per family"): perphenazine, 24mg HS Risperdal, 3mg 2x/day Seroquel, 25-50mg HS trazodone, ?50mg HS also: Lantus insulin, 15 units SC AD (?and Humalog--dose unclear(for endocrine consult) - Include any medical condition(s) that may - impact the patient's recovery/remission Past Medical History: known history of type II diabetes and inability to be maintained on oral agents due to Stage III kidney failure); in poor diabetic control 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, possibly influencing mental status, memory, etc Past History Medical History Neurological: CVA VS SEIZURE, R/O mild degree of cognitive impairment of multiple etiologies (?with some degree of confabulation) EENT: NONE Cardiovascular: hypertension Respiratory: NONE Gastrointestinal: NONE Hepatic: NONE Renal: NONE, chronic kidney disease (Stage III renal failure) Musculoskeletal: NONE Psychiatric: bipolar disease (?with psychotic features), schizo affective disorder Endocrine: diabetes Blood Disorders: NONE Cancer(s): NONE 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 History of MRSA: No History of VRE: No History of CDIFF: No Isolation History: Standard Surgical History Surgical History: non-contributory Psychiatric Family/Social Hx Family History Psychiatric Illness: denied Substance Use: denied Suicides: denied Other Family History: noncontributory at this time Social History Living Situation: (see above under Indentifying Information) Significant Relationships (family/friends): -- to the same woman for 48 years and still living with her --close to 3 adult children --possibly some support through a jesus manuel community --had had a close relationship with mother who raised him as a single mother/ only child and just at age 88 Education: has two masters degrees, one in accounting and obained these while working full- time job Vocation/Occupation: 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 - #1 Recognizing dangerous situations. - #2 Coping Skills. - #3 Basic information about quitting. Status of Tobacco Cessation Counseling: N/A B/C NO TOB USE Cessation Med Status: No Tobacco Use last 30d Alcohol Screening - ETOH screen POS if BAL >=80 or Audit-C>= M4/F3 Audit-C Score from Diag Assess: 0 (does not smoke tobacco) Blood Alcohol Level: Laboratory Tests 02/18 2114 Toxicology Serum Alcohol (<10 MG/DL) < 10.0 Alcohol Use Screening Results: Neg per Audit C &/or BAL - If ETOH counseling indicated - the following topics are required. - #1 Express concern about the patient's - drinking at unhealthy levels, include informing - of national norms for moderate drinking: - men <= 14 drinks/week, max 4 drinks/occasion - women <= 7 drinks/week, max 3 drinks/occasion - #2 Providing feedback, including linking alcohol to - negative physical effects (liver injury, hypertension) - negative emotional effects (relationship problems and - depression) - negative occupational consequences (reduced work - performance) - #3 Advising the patient to abstain from alcohol or - to drink below national norms for moderate drinking - (as listed above). Status of ETOH Use Counseling: N/A B/C NO ETOH Use Metabolic Screening - Screen if on a Neuroleptic Medication - Metabolic screening should include: - Blood Pressure, BMI, Glucose or Hgb A1c, & a - Lipid profile from within the past 365 days. Metabolic Screening () Not Applicable, patient not on a neuroleptic. OR ([X]) Patient on a neuroleptic(s) . Enter below results for Glucose or Hemoglobin A1C, and lipid panel if obtained during the last 365 days. BMI: Blood Pressure: 143/70 Laboratory Results (If applicable): glucose = 225 (all drawn on 02/18/2017) glycos hgb A1c = 10.4 cholesterol = 180 triglycerides = 155 HDL = 45 LDL = 104 Exam and Plan Mental Status Examination Ambulation Status: without assistance Appearance: well kempt, rather distinguished looking with well trimmed garibay/goatee Attitude towards examiner: positive (toward interviewer and medical student) Psychomotor activity: normal Behavior: generally appropriate but guarded at times, not wanting to repeat some things he had told to others before since coming into the E.D.; cordial, affable, friendly Quality of speech: normal, soft and unpressured Affect: somewhat constricted but not tense appearing Mood: somewhat "down" but generally "O.K." Suicidal Ideation: completely denied, now or earlier, despite command auditory hallucinations instructiing him to kill himself Homicidal Ideation: denied Hallucinations: as noted above, has experienced perhaps more than one hallucinated voice in his home, at least one of which told him to harm himself (completely ignored instructions but bothered by intrusion of voices) Paranoid/Delusional Material: while no evidence of dulce, fixed, formal delusions, suspiciousness to the point of paranoia, specifically focusing on and her possible behavior/actions Difficulties with thought organization: possibly, though content limited, not forthcoming Insight: fairly limited at this time (does not have any perspective on his thoughts concerning his ) but knows his medication may need "adjustment" Judgment: only fair at best at this time but did not resist admission and has been completely cooperative with routine, cooperative (though somewhat irritated by being "asked the same questions by everyone over and over again..."; these may be adding fuel to his slow burning paranoia) Orientation: to person, place and situation Cognition: generally intact though was not speaking totally freely, spontaneously or at length Memory Function: seemed somewhat impaired, either by guarding/paranoia and/or some degree of mild cognitive impairment Estimate of intellectual functioning: average to above Assets/Strengths Patient Identified Assets/Strengths: --active Born Again Baptism --reads The Bible frequently; refers to it for guidance and strength --good and father --always been a hard worker, supporting his family Impression/Plan Impression and Plan: Despite presenting history of recent (command) auditory hallucinations and a degree of mild, almost guarded paranoia (not wanting to appear paranoid) on interview patient's presentation and history suggests a longstanding Bipolar or Schizoaffective Disorder with intermittent psychotic features (e.g. during but probably not active in between episodes). I am not clear at this time why patient is apparently receiving THREE anti-psychotic drugs on an outpatient basis but he has already been reduced to a single agent by Dr. Celestin at time of admission, and I will go with that (plus PRN's of same) for the present given poorly controlled insulin dependent diabetes and poor kidney function and consider introducting a mood stabilizer such as Depakote ER and/or Tegretol. We need corrolary information from family and treaters. - Include all active medical diagnosis that require tx DSM 5 Diagnosis(es): Bipolar I Disorder, Mixed; MRE Mixed with psychotic features (including onset of command-type auditory hallucinations) R/O Schizoaffective Disorder with Psychotic Feature R/O early dementing process (possibly contributed to by poorly controlled diabetes, as well as degree of untreated hypertension) also: Diabetes Type II; currently on insulin and coverage Stage III Renal Impairment (?etiology/etiologies) ?hypertension and degree of C-V disease - Initial Tx Plan for Active Psych & Medical Conditions Treatment Plan: --maintain off Risperdal and Seroquel for the present while evaluating efficacy of Trilafon alone or with augmentation by a mood-stabilizer --bring uncontrolled diabetes under control with consultation by endocrinologists, Drs. Sharp and Archie --try to tease out the likely multiple reasons for patient's complaint of lack of ability to perform sexually with spouse --discuss intensive outpatient treatment with the patient and his family --hold a family meeting with patient, spouse, as may of their children as possible TRICIA --consider involvement of patient's clergy/jesus manuel community, if appropriate and wished by patient --assess for possible mild cognitive impairment(s) --rule out other physical disorders possibly requiring treatment (e.g. closely monitor blood pressure as patient not currently on anti-hypertensive regimen) - Factors that would help patient function - in a less restrictive setting. Factors: --timely family meeting including , children and possibly other knowledgeable/close persons --continuing positive, cooperative approach to treatment by patient --rapid disclosure and resolution of subjects/objects of recent/current paranoid trends to thinking --brisk positive response to medication therapies --willingness to make direct transition from [facility] to [facility] for further intense step-down evaluation, treatment and referral --prompt receipt of records from other treatments --contact with outpatient manager trading, Dr. Hernandez
--- NOTE | 2017-02-20 18:35 | History & Physical ---
General Information and HPI MD Statement: I have seen and personally examined CANDELARIO GUZMAN and documented this H&P. The patient is a 66 year old M who presented with a patient stated chief complaint of thoughts of harming self. Source of Information: patient, family Exam Limitations: no limitations History of Present Illness: 66-year-old -Cambodian male brought to the emergency room by his according to her patient is hearing voices but the patient denies this currently the voices were telling him he would by suicide and seems a little paranoid due to all this is admitted for evaluation and treatment Allergies/Medications Allergies: Coded Allergies: No Known Allergies (02/18/17) Home Med list Insulin Glargine,Hum.rec.anlog (Lantus Solostar) 100 UNIT/ML (3 ML) INSULN.PEN 15 UNIT SC AD DM (Reported) Insulin Lispro (Humalog) (Unknown Strength) VIAL (Unknown Dose) SC AD DM ( Reported) Perphenazine 8 MG TABLET 3 TAB PO QHS MENTAL HEALTH (Reported) Quetiapine Fumarate (Seroquel) 25 MG TABLET 1-2 TAB PO QHS MENTAL HEALTH ( Reported) Risperidone (Risperdal) 3 MG TABLET 1 TAB PO BID MENTAL HEALTH (Reported) Trazodone HCl 50 MG TABLET 1.5 TAB PO QPM MENTAL HEALTH (Reported) Compliance With Home Meds: UNKNOWN Past History Travel History Traveled to [place] past 21 day No Medical History Neurological: CVA VS SEIZURE EENT: NONE Cardiovascular: hypertension Respiratory: NONE Gastrointestinal: NONE Hepatic: NONE Renal: NONE Musculoskeletal: NONE Psychiatric: bipolar disease Endocrine: diabetes Blood Disorders: NONE Cancer(s): NONE History of MRSA: No History of VRE: No History of CDIFF: No Isolation History: Standard Surgical History Surgical History: non-contributory Past Family/Social History Psychosocial History Where do you live? Home Employment History Employment Disability Profession/Employer [employer] Review of Systems Review of Systems Constitutional: Reports: see HPI. Exam & Diagnostic Data Last 24 Hrs of Vital Signs/I&O Vital Signs Date Time Temp Pulse Resp B/P Pulse O2 O2 Flow FiO2 Ox Delivery Rate 02/20 1600 70 157/94 02/20 1242 69 135/75 02/20 813 98.2 100 163/80 02/21 812 96.8 85 18 154/80 02/20 2008 96.8 85 154/80 Intake & Output 02/20 1600 02/20 0800 02/20 0000 Intake Total Output Total Balance Patient 190 lb Weight Physical Exam General Appearance Alert, Oriented X3, Cooperative, No Acute Distress Skin No Rashes, No Breakdown HEENT PERRLA, EOMI, Mucous Membr. moist/pink Neck Supple, No JVD Lymphatic Axillary nl, Cervical nl Cardiovascular Regular Rate Lungs Clear to Auscultation, Normal Air Movement Abdomen Normal Bowel Sounds, Soft, No Tenderness, No Hepatospenomegaly Neurological Exam Findings: Normal Gait, Normal Speech, Strength at 5/5 X4 Ext, Normal Tone, Sensation Intact, Cranial Nerves 3-12 NL, Reflexes 2+ Cranial Nerves II through XII: Intact Extremities No Cyanosis, No Edema Vascular Pulses Symmetrical Last 24 Hrs of Labs/Bayron: Laboratory Tests 02/19/17 1115: Urine Opiates Screen < 100.00, Methadone Screen < 40, Barbiturate Screen < 60, Ur Phencyclidine Scrn < 6.00, Amphetamines Screen < 100, U Benzodiazepines Scrn < 85, Urine Cocaine Screen < 50, Urine Cannabis Screen < 5.00 02/18/17 2114: Anion Gap 9, Estimated GFR 35 L, BUN/Creatinine Ratio 11.6, Glucose 225 H, Hemoglobin A1c 10.4 H, Calcium 9.0, Triglycerides 155 H, Cholesterol 180, LDL Cholesterol, Calc 104, HDL Cholesterol 45, Cholesterol/HDL Ratio 4, Vitamin B12 Pending, Folate Pending, Free T4 Pending, Thyroxine (T4) Pending, TSH &T3 &Free T4 Intrp 1.480, CBC w Diff NO MAN DIFF REQ, RBC 4.23 L, MCV 80.7, MCH 27.5, RDW 15.1 H, MPV 7.5, Gran % 69.9, Lymphocytes % 23.0, Monocytes % 4.4, Eosinophils % 1.8, Basophils % 0.9, Absolute Granulocytes 4.5, Absolute Lymphocytes 1.5, Absolute Monocytes 0.3, Absolute Eosinophils 0.1, Absolute Basophils 0.1, PUBS MCHC 34.1, Serum Alcohol < 10.0 Assessment/Plan As Ranked By This Provider Problem List: 1. Schizophrenia Qualifiers Schizophrenia type: unspecified Qualified Code: F20.9 - Schizophrenia, unspecified 2. Diabetes Miscellaneous Miscellaneous Documentation Attending Case Discussed With: FREDO RUBALCAVA,CHIDI Tran Primary Care Physician: SHYANN SALINAS MD Patient sees these Specialists Psychiatry Level of Patient Care: [facility] Consults Needed: Consulting Specialty: Psychiatry Consulting Physician: Chidi Salazar MD Reason for Consult: suicidal ideations mainly paranoia
[2017-02-20 20:01] VITALS: BP 141/79
--- NOTE | 2017-02-20 21:08 | NUR ---
PT IS CALM, COOPERATIVE WITH STAFF AND PEERS, AND COMPLIANT WITH UNIT RULES. PT IS ISOLATIVE AND WITHDRAWN, SPENDING LONG PERIODS OF TIME OUT OF MILIEU, IN PT ROOM. PT ALSO APPEARS SLIGHTLY LETHARGIC PT WILL SLEEP IN PT ROOM DURING THROUGHOUT PERIODS OF THE EVENING. IS TALKING TO SELF AT TIMES. MOOD IS STABLE, AFFECT IS CONSTRICTED/FLAT, COMMUNICATION IS ORGANIZED AND APPEARS NORMAL IN ALL REPECTS, AND APPETITE IS NORMAL. PT DENIES SI AT THIS TIME.
--- NOTE | 2017-02-20 22:13 | NUR ---
SPOKE WITH DR RECIO COVERING FOR DR LIMA REGARDING PT NOVOLOG SLIDING SCALE ORDER. ORDER WHICH APPARENTLY CARRIED OVER TO CPS FROM ER NOT APPROPRIATELY PUT INTO SYSTEM TO INDICATE WHEN COVERAGE IS TO BE ADMINISTERED IE. MEALTIME; BEDTIME SCALE ALSO NOT AVAILABLE. RECEIVED ORDER FOR ENDOCRINE CONSULT. NO NOVOLOG INSULIN TO BE ADMINISTERED THIS PM. CHARGE NURSE ORION AND PHARMACIST REJI ALSO MADE AWARE AWARE OF ISSUE RELATED NOVOLOG ORDER.
--- NOTE | 2017-02-20 22:25 | NUR ---
BLOOD GLUCOSE AT 1630 WAS 317, AND AT 2130 WAS 291.
--- NOTE | 2017-02-21 05:43 | NUR ---
PATIENT SLEPT ALL NIGHT.
[2017-02-21 08:04] VITALS: BP 134/64
--- NOTE | 2017-02-21 08:08 | NUR ---
DR. SOW IS ON-CALL THIS WEEKEND AND THE OFFICE WAS NOTIFIED FOR A CALL BACK RE: SLIDING SCALE ORDERS FOR THIS MORNING ANF ONGOING, AWAITING CALL BACK. BLOOD SUGAR @ 0800 = 230.
--- NOTE | 2017-02-21 08:31 | NUR ---
DR. SOW CALLED THE UNIT BACK AND AWARE OF PT'S AM BLOOD SUGAR AND INACCURATE CURRENT SLIDING SCALE, NO NEW ORDERS AT THIS TIME AND WILL BE DOWN TO SEE THE PT.
--- NOTE | 2017-02-21 10:37 | NUR ---
DR. MAGI MARSHALL MET WITH PT, AWAITING EMAR S/S ORDER ADJUSTMENTS.
--- NOTE | 2017-02-21 10:58 | Cons- Endocrinology ---
General Information and HPI Consulting Request Date of Consult: 02/21/17 Requested By: Chidi Genao M.D. Reason for Consult: Uncontrolled diabetes Source of Information: patient, old records Exam Limitations: poor historian History of Present Illness: This 66-year-old -Hungarian male has a history of type 2 diabetes mellitus. He is on insulin at home including Lantus 15 units at bedtime and sliding scale Humalog. He is not aware of his sugar readings prior to admission because he states his checks his sugar and give him his insulin. The patient has chronic kidney disease stage III. He denies any diabetic retinopathy. The patient entered the hospital because he was hearing voices. He himself states that he was feeling okay but that his son advised him to come to the hospital. 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 Allergies/Medications Allergies: Coded Allergies: No Known Allergies (02/18/17) Home Med List: Insulin Glargine,Hum.rec.anlog (Lantus Solostar) 100 UNIT/ML (3 ML) INSULN.PEN 15 UNIT SC AD DM (Reported) Insulin Lispro (Humalog) (Unknown Strength) VIAL (Unknown Dose) SC AD DM ( Reported) Perphenazine 8 MG TABLET 3 TAB PO QHS MENTAL HEALTH (Reported) Quetiapine Fumarate (Seroquel) 25 MG TABLET 1-2 TAB PO QHS MENTAL HEALTH ( Reported) Risperidone (Risperdal) 3 MG TABLET 1 TAB PO BID MENTAL HEALTH (Reported) Trazodone HCl 50 MG TABLET 1.5 TAB PO QPM MENTAL HEALTH (Reported) Review of Systems Review of Systems Constitutional: Denies: chills, fever. Cardiovascular: Denies: chest pain. Respiratory: Denies: short of breath. GI: Denies: abdominal pain. Genitourinary: Denies: dysuria. Musculoskeletal: Denies: muscle pain. Skin: Reports: no symptoms. Neurological/Psychological: Reports: confusion. Denies: anxiety. Hematologic/Endocrine: Denies: bruising. Past History Travel History Traveled to [place] past 21 day No Medical History Neurological: CVA VS SEIZURE EENT: NONE Cardiovascular: hypertension Respiratory: NONE Gastrointestinal: NONE Hepatic: NONE Renal: NONE Musculoskeletal: NONE Psychiatric: bipolar disease Endocrine: diabetes Blood Disorders: NONE Cancer(s): NONE Surgical History Surgical History: non-contributory Psychosocial History Where Do You Live? Home Employment History Employment: Disability Profession/Employer: [employer] Exam & Diagnostic Data Last 24 Hrs of Vital Signs/I&O Vital Signs Date Time Temp Pulse Resp B/P Pulse O2 O2 Flow FiO2 Ox Delivery Rate 02/22 0849 68 134/64 04/15 0804 97.1 68 134/64 /2000 98.7 79 141/79 04/14 1600 70 157/94 04/14 1242 69 135/75 Vital Signs Date Time Temp Pulse Resp B/P Pulse O2 O2 Flow FiO2 Ox Delivery Rate 02/22 0849 68 134/64 04/15 0804 97.1 68 134/64 /2000 98.7 79 141/79 0414 1600 70 157/94 02/20 1242 69 135/75 Physical Exam General Appearance: alert, awake, comfortable Head: normal appearance Eyes: Bilateral: normal appearance. Neck: normal inspection Respiratory: normal breath sounds Cardiovascular: regular rate/rhythm Gastrointestinal: normal bowel sounds, soft Extremities: normal inspection Assessment/Plan Assessment/Plan This 66-year-old male has a known history of type 2 diabetes mellitus. Since coming to the hospital his sugars have been out of control. He is on 15 units of Levemir at night and sliding scale NovoLog starting with the sugar above 200. The patient has chronic kidney disease stage III and therefore was not a candidate for oral agents for management of his diabetes. His hemoglobin A1c is 10.4%. This suggests that his sugar was not in good control prior to admission. At this time I suggest we leave him on the 15 units Levemir at bedtime. Need however to adjust his sliding scale NovoLog before meals bring about better control of his blood sugars. Consult Acknowledgment - Thank you for your consult request.
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
[2017-02-21 12:10] VITALS: BP 143/70
--- NOTE | 2017-02-21 12:42 | NUR ---
PT IS PLEASANT, RESPECTFUL, COOPERATIVE, COMPLIANT AND HAS NO ISSUES OR COMPLAINTS TO REPORT, MOOD IS STABLE WITH FULL RANGE AFFECT, NO S/SX OF PSYCHOSIS NOTED OR OBSERVED THUS FAR TODAY, HAS BEEN OVERALL WITHDRAWN TO ROOM FOR MOST OF THE DAY BUT WILL COME OUT FOR VITALS, MEDS AND TO EAT, VSS, DR. SOW MET WITH PT AND ADJUSTED SLIDING SCALE ACCORDINGLY, ATTENDED PLANNING MEETING WHERE HE REPORTED + SLEEP/MOOD AND DID NOT ATTEND FOCUS GROUP.
[2017-02-21 16:13] VITALS: BP 142/74
[2017-02-21 19:49] VITALS: BP 153/71
--- NOTE | 2017-02-21 20:13 | NUR ---
PT IS CALM, COOPERATIVE, COMPLIANT. WITHDRAWN TO PT ROOM THIS EVENING SHIFT AND MINIMALLY OUT IN THE COMMUNITY. PT WILL ENGAGE WITH PEERS/STAFF OCCASIONALLY. VS ARE STABLE AND PT OFFERS NO COMPLAINTS. APPROPRIATE TO THE UNIT. DENIES ANY SI/HI TO THIS MHW.
--- NOTE | 2017-02-22 06:06 | NUR ---
PATIENT SLEPT UNTIL 414, RESTLESS, SPENT REST OF SHIFT IN LOUNGE.
[2017-02-22 08:49] VITALS: BP 137/81
[2017-02-22 11:33] VITALS: BP 140/76
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
--- NOTE | 2017-02-22 11:56 | PN- Diabetes ---
Assessment/Plan Assessment: The patient states he feels improved. His insulin was adjusted yesterday. He is presently on Levemir 15 units once a day at bedtime and sliding scale NovoLog before meals. His sliding scale starts with 3 units for 80-150. The patient's fingerstick blood sugar at bedtime last night was 161 and this morning is 215. The patient has chronic renal failure stage III. His creatinine today is 2.2. Plan: Suggest continue the patient's present insulin regimen. We have kept him on relatively small dose of insulin in view of his renal failure. Further adjustments may be necessary. The patient's creatinine has gone up to 2.2. I would repeat his BMP tomorrow. Subjective Subjective: Feels okay. Once to go home. Review of Systems Constitutional: Denies: chills, fever. Cardiovascular: Denies: chest pain. Respiratory: Denies: short of breath. Gastrointestinal: Denies: nausea, vomiting. Skin: Reports: no symptoms. Objective Last 24 Hrs of Vital Signs/I&O Vital Signs Date Time Temp Pulse Resp B/P Pulse O2 O2 Flow FiO2 Ox Delivery Rate 02/22 1133 63 140/76 02/22 0853 70 137/81 02/22 0849 97.8 70 137/81 02/21 1949 97.2 66 153/71 02/21 1613 67 142/74 02/21 1210 73 143/70 Vital Signs Date Time Temp Pulse Resp B/P Pulse O2 O2 Flow FiO2 Ox Delivery Rate 02/22 1133 63 140/76 /16 0853 70 137/81 /16 0849 97.8 70 137/81 02/21 1949 97.2 66 153/71 02/21 1613 67 142/74 02/21 1210 73 143/70 Physical Exam General Appearance: alert, awake, comfortable Head: normal appearance Neck: normal inspection Abdomen: obese Extremities: normal inspection Skin: intact Current Medications: Current Medications Sig/Neel Start time Last Medication Dose Route Stop Time Status Admin Acetaminophen 650 MG Q6P PRN 02/19 1415 AC PO Al Hydroxide/Mg 30 ML Q4-6 PRN PRN 02/19 1415 AC Hydroxide PO Amlodipine Besylate 10 MG DAILY 02/20 1000 AC 02/22 PO 0853 Benztropine Mesylate 1 MG Q6P PRN 02/19 1415 AC PO Insulin Aspart 0 TIDAC 02/21 1200 AC 02/22 SC 0853 Insulin Detemir 15 UNITS 2200 02/19 2210 AC 02/21 SC 2133 Lamotrigine 200 MG BID 02/19 220 AC 02/22 PO 0853 Magnesium Hydroxide 30 ML AT BEDTIME PRN 02/19 1415 AC PO Perphenazine 4 MG Q4P PRN 02/20 1845 AC PO Perphenazine 24 MG AT BEDTIME 02/19 2200 02/21 PO 213 Trazodone HCl 50 MG AT BEDTIME NEED.. 02/19 1415 02/19 PO 220
--- NOTE | 2017-02-22 13:35 | NUR ---
PT IS PLEASANT, CALM, COOPERATIVE, NO ISSUES OR COMPLAINTS REPORTED OR OBSERVED, FINGER STICK @ 0730 = 215 & 1130 = 244 AND RECEIVED INSULIN PER EMAR AND SLIDING SCALE, NO EVIDENCE OF PSYCHOSIS NOTED OR REPORTED, LESS ISOLATIVE TODAY COMPARED TO YESTERDAY, PRESENT ON THE UNIT IN INTERVALS, + MOOD, APPETITE FAIR, VSS, GOAL FOR THE DAY WAS TO BE OUT OF HIS ROOM MORE, REPORTED LOOKING FORWARD TO A VISIT HOPEFULLY WITH ONE OF HIS CHILDREN LATER IN THE DAY.
[2017-02-22 15:58] VITALS: BP 156/77
--- NOTE | 2017-02-22 17:31 | NUR ---
DR. SOW CONTACTED D/T PT'S BLOOD SUGAR OF 401 AND THE SLIDING SCALE ONLY GOES TO 400, 8 UNITS PER EMAR & S/S GIVEN AND PER MD NO FURTHER ORDERS GIVEN.
[2017-02-22 19:26] VITALS: BP 147/77
--- NOTE | 2017-02-22 19:38 | NUR ---
PT IS ISOLATIVE, WITHDRAWN, INTERACTS MINIMALLY WITH STAFF/PEERS, HAS BEEN IN PT ROOM FOR MOST/ALL OF EVENING SHIFT, OOB FOR DINNER, VS, MEDICATIONS AND THEN PROMPTLY RETURNS TO PT ROOM AFTERWARDS. WHEN PT DOES ENGAGE HE IS APPROPRIATE AND POLITE/COMLPIANT/COOPERATIVE. VS ARE STABLE AND DENIES ANY SI/HI TO THIS MHW.
--- NOTE | 2017-02-23 07:06 | NUR ---
PATIENT SLEPT ALL NIGHT.
[2017-02-23 07:47] VITALS: BP 144/77
[2017-02-23 12:17] VITALS: BP 136/69
--- NOTE | 2017-02-23 13:42 | NUR ---
PT IS CALM AND COOPERTIVE WITH STAFF AND UNIT ROUTINE. HE IS ATTENDING MOST OF THE GROUPS AND PARTICIPATES APPROPRIATELY. HE IS COMPLIANT WITH HIS MED REGIME. PT DID REPORT TO STAFF THAT HE WAS "UNABLE TO HEAR WHAT OTHERS WERE THINKING" AND HE WAS GIVEN A PRN TO HELP ORGANIZE HIS THOUGHTS. WHEN ASKED HE DENIED ANY THOUGHTS OF SUICIDE OR SELF HARM
[2017-02-23 16:21] VITALS: BP 148/78
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
[2017-02-23 19:38] VITALS: BP 129/71
--- NOTE | 2017-02-23 21:16 | NUR ---
PT IS CALM, COOPERATIVE WITH STAFF AND PEERS, AND COMPLIANT WITH UNIT RULES. PT REAMINS IN MILIEU AT TIMES, BUT WILL STAY IN PT ROOM FOR PERIODS OF TIME. MOOD IS STABLE, AFFECT IS EUTHYMIC TO FULL RNAGE, COMMUNICATION IS ORGANIZED AND APPEARS NORMAL IN ALL RESPECTS, AND APPETITE IS NORMAL. PT DENIES SI AT THIS TIME.
--- NOTE | 2017-02-24 06:25 | NUR ---
PT WAS UP X 1. PT APPEARED TO SLEEP WELL.
[2017-02-24 08:06] VITALS: BP 138/74
--- NOTE | 2017-02-24 11:40 | NUR ---
PT IS STABLE WITH CONSTRICTED AFFECT, PRESENT WITHIN THE COMMUNITY, DOES NOT ENGAGE WITH OTHERS UNLESS PROMPTED TO DO SO, MINIMAL/NO INTERACTIONS WITH OTHERS, WITHDRAWN, REMAINS ON THE PERIPHERY OF THE COMMUNITY. PT DID ATTEND PLANNING MEETING AND STATED THAT HE IS FEELING "SLEEPY TODAY FROM MEDICATIONS" BUT WANTS TO ATTEND GROUPS. VS ARE STABLE AND DENIES ANY SI/HI TO THIS MHW.
[2017-02-24 12:07] VITALS: BP 150/71
--- NOTE | 2017-02-24 13:45 | SOCIAL WORKER PROG NOTE PSYCH ---
Social Work Progress Note Progress Note Winston talked alot about being home alone prior to hospitalization. Reported that he had a "ministroke or seizure" months ago and that he has not been able to use a car. Per his report, his made this restriction. He has felt alone and depressed. He shared the strain that he feels between him and his . He initially didn't want to share the details of what that was about, but then when I brought up that I read that he thinks his is having an affair with their licensed pharmacist, he opened up. He went on to talk about how she is in denial about the whole thing and that she is trying to "throw him under the bus". He thinks that she wants him here and out of the house, so that the licensed pharmacist can continue to come over. 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 He couldn't say how he found out that he had AIDS or who told him this was conclusive. He is open to having a test here. I asked if we would be able to have a family meeting? He said he did not want his here and wants to spare her from "the embarrassment". He is only open to having his son Winston Shoemaker in for a meeting. At this point he feels heartbroken and betrayed. He did share that he heard a voice prior to coming to the hospital and that is why his son wanted him to come. He said the voice said "you are going to by suicide". He said he has never wanted to kill himself and doesn't want to now. He reports never hearing a voice like this before. Asked if he has heard any voices since being here? He said no. He is enjoying the groups here, but doesn't think he can do an IOP. He normally sees Dr. Hernandez as his psychiatrist. Spoke with Winston Shoemaker The earliest he was available to come in is on Thursday at 11am. He is busy with work tomorrow and out of town on .
[2017-02-24 15:48] VITALS: BP 142/65
--- NOTE | 2017-02-24 17:44 | CP SOUTH PROGRESS NOTE PSYCH ---
Psych (Inpt) Progress Note Progress Note Include the following elements, when applicable: Involvement in the active treatment of the patient with behavioral observations of the patient and the patient's response to the treatment. Review of the ongoing treatment process in the context of the treatment plan. Indication of how multi-disciplinary staff members are carrying out the treatment plan. Plans for future interventions and recommendations for revision of the treatment plan. Liaison with other physicians/providers. Progress Note: PSYCHIATRIST NOTE, 02/24/2017: I discussed this patient's slow progress to date, current mental status, treatment and discharge planning with staff team today in the daily morning ITTM and also met again with him myself in individual session. Patient complained that the increase in regular dose of Trilafon of only 4mg had made him too tired and requested to go back down to 24mg HS; I was reluctant to do this, particularly since we had already held the Risperdal he had also been on JAVA ARCHITECT, but patient assured me he would make use of the PRN Trilafon for racing or disturbing thoughts, "voices" or problems with sleep due to "overthinking," what he has called "regurgitation" of thoughts over and over again, similar to what we conceptualize as ruminations and stemming from the same metaphor (of a cow digesting its cud). I spoke with patient once again about the importance of our having a meeting with him and the others he will be returning to live with upon discharge; he continues to resist inviting his to such a meeting and even sounded as if he were planning a separation ("we will be liquidating the house which is paid for, splitting the money and going our ways..."); at length he did agree to having his daughter who lives with he and her mother come to the meeting tentatively scheduled for 02/27/2017; a son has already been invited to participate. Patient also gave me permission to speak with his "new" psychiatrist, Dr. Hernandez of [place], who he has been seeing "for about 3 months;" patient noted that prior to this he had a psychiatrist in [place], [place]. ("but he only wanted to prescribe me medication and we did not connection, so I found a new psychiatrist...Dr. Hernandez is from [place]...") I also again spoke with patient about my own recommendation that he f/u in IOP, now particularly if he is not going to give us permission to have any contact with his ; he is becoming less resistant to the idea so long as he isn't "locked into going there for a very long time."
[2017-02-24 20:07] VITALS: BP 163/81
--- NOTE | 2017-02-24 21:09 | NUR ---
PT IS CALM, COOPERATIVE WITH STAFF AND PEERS, AND COMPLIANT WITH UNIT RULES. PT IS OFTEN IN MILIEU, BUT IS PRONE TO ISOLATING AT TIMES IN PT ROOM. MOOD IS STABLE, AFFECT IS EUTHYMIC TO FULL RNAGE MOSTLY, WITH BRIGHT MOMENTS AT TIMES, COMMUNICATION IS ORGANZIED AND NORMAL IN ALL RESPECTS, AND APPETITE IS NORMAL. PT DENIES SI AT THIS TIME. BLOOD GLUCOSE AT 1630 WAS 165.
--- NOTE | 2017-02-25 02:55 | NUR ---
Slept well, no complaints offered.
[2017-02-25 08:13] VITALS: BP 135/68
--- NOTE | 2017-02-25 08:59 | SOCIAL WORKER PROG NOTE PSYCH ---
Social Work Progress Note Progress Note Mrs. North left a message asking for a call back to discuss the meeting scheduled on Thursday. I spoke with Winston and informed him that his called and left a message. I asked if he would sign a release so that I can call her back and speak with her? He refused, stating he doesn't want her involved and she is just "throwing him under the bus." I again reiterated the fact that he is returning home to live with her and it would be good to meet before discharge. He stated "we can live in two seperate parts of the house." He did sign a release for Dr. Salazar to speak with Dr. Jane. He said he slept last night and is working on going to groups and increasing his social skills. Spoke with Winston again later in the day. His continues to call the unit to talk to staff. Nursing explained to her that we don't have a release to tell her any information. I told Winston that she continues to call. He repeatedly stated that he does not want her at the meeting. He feels that she has negative things to say about him. He was agreeable for me to call him daughter Josephine and invite her to the meeting. I called Winston North Jr. and got her number ). I let him know that I was inviting Josephine. Left a message with Josephine's voicemail.
--- NOTE | 2017-02-25 12:05 | NUR ---
PT IS COMPLIANT AND COOPERATIVE WITH UNIT RULES. PT IS OUT IN COMMUNITY INTERACTING WITH STAFF AND PEERS AT TIMES. PT IS ACTIVE IN GROUPS. PT MOOD IS STABLE WITH A FUL RANGE AFFECT. PT DENIES SI THOUGHTS. PT IS ATTENDING GROUPS
[2017-02-25 12:16] VITALS: BP 144/74; BP 155/68
[2017-02-25 15:57] VITALS: BP 148/72
--- NOTE | 2017-02-25 18:58 | CP SOUTH PROGRESS NOTE PSYCH ---
Psych (Inpt) Progress Note Progress Note Include the following elements, when applicable: Involvement in the active treatment of the patient with behavioral observations of the patient and the patient's response to the treatment. Review of the ongoing treatment process in the context of the treatment plan. Indication of how multi-disciplinary staff members are carrying out the treatment plan. Plans for future interventions and recommendations for revision of the treatment plan. Liaison with other physicians/providers. Progress Note: PSYCHIATRIST NOTE, 02/25/2017: I discussed this patient's slow progress to date, current mental status, treatment and discharge planning with staff team today in the daily morning ITTM and also met with him again myself in individual session. Patient continues to be pleasant, cordial and very polite during our indivdual contacts but his position regarding his having any part in his evaluation and treatment here on [facility] has not softened; he still refuses to give his permission/a MARISABEL for us to even speak with us, let alone have a meeting together. We are planning for a meeting with patient and his son, and hopefully daughter who actually lives with patient and her mother, on 02/27/2017 at 11am. Patient again spoke of terminating his relationship through a physical separation but exactly how that would work I am not yet clear; not being allowed to speak with patient's spouse of course makes all this that much more difficult to sort out going forward; I very much hope patient's adult children will be able/willing to shed more light on the subject. One thing which patient complains about which sounds quite reasonable is his desire to be able to drive again and not be confined "like a prisoner in my own home." He insists that no physician has told him he must or even should stop driving but that "it's all been my ...she is keeping me prisoner...she goes off in her car and I am "looking at the four espinoza." Apparently, daughter is using patient's car currently, but he would like to purchase another vehicle for his own use.
[2017-02-25 19:37] VITALS: BP 153/70
--- NOTE | 2017-02-25 21:23 | NUR ---
PT IS VISIBLE ON UNIT, MOSTLY STAYING TO HIMSELF AND WATCHING TV IN LOUNGE. COOPERATIVE AND COMPLIANT WITH STAFF. REFUSED WRAP UP MEETING THIS EVENING. NO COMPLAINTS OR SI REPORTED. PT HAS A STABLE MOOD AND FULL RANGE AFFECT.
--- NOTE | 2017-02-26 07:20 | NUR ---
PATIENT UP TO BATHROOM ONCE, OTHERWISE SLEPT.
[2017-02-26 08:10] VITALS: BP 139/71
[2017-02-26 12:34] VITALS: BP 142/65
--- NOTE | 2017-02-26 13:13 | NUR ---
PT IS COMPLIANT AND COOPERATIVE WITH UNIT RULES. PT IS OUT IN COMMUNITY, MINIMAL INTERACTION WITH STAFF AND PEERS. PT TENDS TO ISOLATE TO SELF OR IN ROOM. PT IS ATTENDING SOME GROUPS. PT MOOD IS STABLE WTIH A FULL RANGE AFFECT. PT DENIES SI THOUGHTS. PT BLOOD SUGAR 187 AT 0730 AND 299 AT 1200.
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
[2017-02-26 16:08] VITALS: BP 151/69
[2017-02-26 19:51] VITALS: BP 148/75
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
[2017-02-27 08:25] VITALS: BP 135/79
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
--- NOTE | 2017-02-27 12:06 | SOCIAL WORKER PROG NOTE PSYCH ---
Social Work Progress Note Progress Note Met with Winston and his son Winston Cuellar. Dr. Salazar was also in attendance at the meeting. Winston's son's concerns are about the hallucinations that he feels his Dad has been experiencing. Particularly about people coming into the house that aren't there. He is concerned about how this is effecting the relationship between him and his Mom. Winston spent alot of time talking about his interactions with his . He describes the communication as being difficult between them and that she becomes "combative" when they try and talk. Winston Shoemaker stated that his Mom does get defensive when his Father brings up the issue about the stave saw operator and the affair. She feels the need to defend herself. Winston was in agreement by the end of our discussion for me to schedule a meeting with his and him. He signed a release for her. I called and left a message. Mrs. North returned the call and stated she could not come in Thursday, but can come Thursday.
[2017-02-27 12:13] VITALS: BP 132/69
--- NOTE | 2017-02-27 12:56 | NUR ---
PT VISIBLE IN THE MILIEU MOST OF THE DAY. HE DID NOT ATTEND PLANNING MEETING THIS MORNING, SO NO GOAL WAS MADE BUT DID ATTEND FOCUS GROUP. PT HAD GOOD PARTICIPATION IN GROUP. HE HAD A FAMILY MEETING WITH HIS SON TODAY, WHICH HE SHARED WENT WELL. PT HAS BEEN PLEASANT AND COOPERATIVE WITH STAFF DIRECTION BUT DENIES HAVING THOUGHTS OF HURTING HIMSELF.
[2017-02-27 15:54] VITALS: BP 147/72
[2017-02-27 20:19] VITALS: BP 168/74
--- NOTE | 2017-02-27 22:20 | NUR ---
PT IS STABLE, A LITTLE BIT MORE WITHDRAWN AND ISOLATIVE THAN PAST OBSERVATIONS. SPENT MORE TIME IN HIS ROOM BUT ATTENDED WRAP UP GROUP AND WAS AWARE OF HIS CONSTRICTED BEHAVIOR. PT DENIES ANY THOUGHTS OF SI AT THIS TIME.
[2017-02-28 08:25] VITALS: BP 141/78
--- NOTE | 2017-02-28 09:13 | CP SOUTH PROGRESS NOTE PSYCH ---
Psych (Inpt) Progress Note Progress Note Include the following elements, when applicable: Involvement in the active treatment of the patient with behavioral observations of the patient and the patient's response to the treatment. Review of the ongoing treatment process in the context of the treatment plan. Indication of how multi-disciplinary staff members are carrying out the treatment plan. Plans for future interventions and recommendations for revision of the treatment plan. Liaison with other physicians/providers. Progress Note: Stated that he has been incorporating things he learns in groups in his routine; that he has learned a lot from the paperwork, from the handouts, to implement when I get home. My mind set is different, Sherri gleaned so much, learned to be tolerant, tactful, I hope to migrate when I deal w/ her and Im Trying to cycle into tranquility, serenity learned a lot about myself vicariously Not grossly psychotic but odd, idiosyncratifc statements (may be cultural) and word usage. Stated that he is doing well, looking forward to being home w/ his ; that he hopes that the relationship will improve w/ what he has learned while admitted. No medication issues. Stated that family meeting went well w/ his son. No sleep problems, appetite is good. MSE: middle aged man, good hygiene and grooming. Appropriate eye contact. No movement d/o noted. No psychomotor slowing/agitation. Affect is full, mood is neutral to irritated. Speech is regular volume, rate and rhythm. Thought process is tangential, odd but overall is goal directed when asked specific close ended questions. Thought content negative for depressive thoughts, positive for future orientation; no thoughts to harm himself/others. Denied hallucinations when confronted about recent ones as in the chart he stated that there was someone in his house who had mentioned suicide (appeared to be a hallucination) which prompted concern from his family. Poor insight to recent sx and circumstances surrounding admission. Judgment is good. A: 66 y/o man w/ hx psychotic illness, admited w/ worsening paranoia, believing that people were coming into his house telling him to kill self. Clinically stabilizing but continues to have evidence of thought disorder (disorganized thinking and hallucinations). Risk: Hx significant psychiatric sx, multiple antipsychotic/mood stabilizer meds ; interpersonal difficulties. Low acute risk of harm to self/others due to stabilizing clinically, future oriented, has family support. P: Target risk factors/active sx (residual psychosis) w/education, ongoing family meeting/collateral for d/c planning. Medication, engage in groups, milieu therapy.
[2017-02-28 12:24] VITALS: BP 151/73
[2017-02-28 16:29] VITALS: BP 147/83
[2017-02-28 19:47] VITALS: BP 170/79
--- NOTE | 2017-02-28 21:24 | NUR ---
PT IS CALM, COOPERATIVE WITH STAFF AND PEERS, AND COMPLIANT WITH UNIT RULES. PT IS ISOLATIVE AND WITHDRAWN, SPENDING THE MAJORITY OF THE EVENING IN PT ROOM SLEEPING, AND WHEN APPEARING IN MILIEU ENAGAGES IN LIMITED INETRACTION WITH OTHERS. MOOD IS STBALE, AFFECT IS IS EUTHYMIC TO FULL RANGE, COMMUNICATION IS ORGANIZED AND APPEARS NORMAL IN ALL RESPECTS, AND APPETITE IS NORMAL. PT DENIES SI AT THIS TIME. PT BLOOD GLUCOSE AT 1630 WAS 190.
--- NOTE | 2017-03-01 05:35 | NUR ---
PT ON PERIPHERY ON EVENINGS. PT TO TOILET X 2 IN THE NIGHT. PT APPEARED TO SLEEP.
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
[2017-03-01 08:06] VITALS: BP 130/69
--- NOTE | 2017-03-01 11:58 | NUR ---
Winston was visible on the unit. Some interaction with peers. Attended group and spen time in the lounge with peers watching tv. Denies SH/HI/SI.
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
[2017-03-01 12:31] VITALS: BP 144/89
[2017-03-01 16:51] VITALS: BP 138/73
[2017-03-01 20:02] VITALS: BP 130/84
--- NOTE | 2017-03-01 21:56 | NUR ---
PT IS CALM, COOPERATIVE WITH STAFF AND PEERS, AND COMPLIANT WITH UIT RULES. PT IS IN MILIEU AT TIMES, INTERACTING WELL WITH OTHERS. CAN AT TIMES BE ISOLATIVE, SPENDING LONG PERIODS IN PT ROOM, READING WELL SLEEPING FOR PERIODS. MODO IS STABLE, AFFECTS IS EUTHYMIC TO FULL RNAGE, HAS SOME MOMENTS OF BRIGHTNESS, COMMUNICATION IS ORGANIZED AND APPEARS NORMAL IN ALL RESPECTS, AND APPETITE IS NORMAL. PT DENIES SI AT THIS TIME. BLOOD GLUCOSE AT 1630 READ AT 129, AND AT 2130 READ AT 157.
--- NOTE | 2017-03-02 07:10 | NUR ---
PT APPEARED TO SLEEP WELL. UP X 1 TO TOILET. COOPERATIVE.
[2017-03-02 08:14] VITALS: BP 141/71
--- NOTE | 2017-03-02 11:52 | NUR ---
PT IS COOPERATIVE AND COMPLIANT WITH UNIT RULES. PT IS OUT IN THE COMMUNITY INTERACTING WELL WITH STAFF AND PEERS. PT IS ATTENDING ALL TREATMENT GROUPS. PT MOOD IS STABLE WITH A FULL RANGE AFFECT. PT DENIES SI THOUGHTS.
[2017-03-02 12:44] VITALS: BP 161/97
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
--- NOTE | 2017-03-02 14:08 | CP SOUTH PROGRESS NOTE PSYCH ---
Psych (Inpt) Progress Note Progress Note Progress Note: I discussed this patient's progress to date, current mental status, treatment process in the context of the treatment plan, and discharge planning with staff/ team in the daily morning inpatient team meeting. I also met with the patient myself in individual session. A total of 15 minutes was spent with the patient with more than 50% spent in counseling and/or coordination of care. SUBJECTIVE: "There was someone in my house who told me that I was going to by suicide." OBJECTIVE: Current Medications Sig/Neel Start time Last Medication Dose Route Stop Time Status Admin Acetaminophen 650 MG Q6P PRN 02/19 1415 AC PO Al Hydroxide/Mg 30 ML Q4-6 PRN PRN 02/19 1415 AC Hydroxide PO Amlodipine Besylate 10 MG DAILY 02/20 1000 AC 03/02 PO 0816 Insulin Aspart 0 TIDAC 02/21 1200 AC 03/02 SC 1226 Insulin Detemir 15 UNITS 02/19 2210 AC 03/01 SC 2141 Lamotrigine 200 MG BID 02/19 220 AC 03/02 PO 0816 Magnesium Hydroxide 30 ML AT BEDTIME PRN 02/19 1415 AC 02/22 PO 1944 Perphenazine 32 MG 2000 02/27 2000 AC 03/01 PO 1945 Perphenazine 4 MG Q4P PRN 02/20 1845 AC 02/23 PO 1254 Vital Signs Date Time Temp Pulse Resp B/P B/P Pulse O2 O2 Flow FiO2 Mean Ox Delivery Rate 03/02 1244 59 161/97 03/02 0816 57 141/71 03/02 0814 97.7 57 141/71 03/01 2002 97.5 64 130/84 03/01 1651 59 138/73 ASSESSMENT: Today I am filling in for Dr. Genao. Patient presents this afternoon as calm, pleasant and cooperative. States that he is happy to have spent time here on the unit, stating that he will "go home a better person. I've learned to interact with other people. I'm going home with a wealth of information." Patient states that prior to coming to the hospital, there was a person in his house, whom he did not see, telling him that he would " by suicide." Patient said that at that time he was reading from the Bible, and believed that the person in the house was "quite disconcerted" by what he was reading. At that point "things started moving around the house. Books were flying off the shelves. It was chaotic. I heard the person say "move on, move on." Depression:0/10; Anxiety:0/10 (with 10 the worst.) Denies suicidal ideation, homicidal ideation, auditory hallucinations, visual hallucinations, paranoid ideation. Speech is well articulated, goal-directed, average in rate, volume and tone. Reports sleeping well last night. States he has a "ferocious" appetite. The patient understands the risks/benefits/side effects of the medication and is agreeable to continue taking them. PLAN: Patient is cooperative and pleasant. Delusional thinnking continues. Anticipate family meeting tomorrow. Continue with current management as patient is improving. Continue to provide support and encouragement.
[2017-03-02 16:10] VITALS: BP 185/87
[2017-03-02 20:07] VITALS: BP 165/81
--- NOTE | 2017-03-03 04:50 | NUR ---
Slept well, no complaints offered.
[2017-03-03 07:48] VITALS: BP 138/87
--- NOTE | 2017-03-03 11:28 | IP INCIDENTAL NOTE PSYCH ---
Incidental Note Notation: I have tried to reach patient's current treating outpatient psychiatrist, Dr. Hernandez ([phone]); though he is out of the office his secretary to board of commissioners will try to reach him; I gave her my telephone number. [place] told me that patient currently has an appointment to see Dr. Hernandez 03/09/2017, at 4pm.
[2017-03-03 12:29] VITALS: BP 142/70
--- NOTE | 2017-03-03 13:50 | NUR ---
PT VISIBLE IN THE [facility] TODAY. HIS GOAL WAS TO MINGLE MORE AND ATTEND GROUPS. IN THE [facility] PT HAS BEEN COOPERATIVE WITH STAFF DIRECTION. HE HAS BEEN PARTICIPATING IN GROUPS THROUGHOUT THE DAY. PT HAS A FAMILY MEETING TODAY, AND FOUND OUT THAT HE WILL BE DISCHARGING TOMORROW FOR IOP. PT STATES THAT HE LOVES LIFE, AND HAS NO THOUGHTS OF HARMING SELF.
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
[2017-03-03 15:57] VITALS: BP 140/71
--- NOTE | 2017-03-03 17:57 | SOCIAL WORKER PROG NOTE PSYCH ---
Social Work Progress Note Progress Note Called Winston's to inform her our thoughts around discharging Winston later this afternoon. She seemed upset on the phone, voicing her thoughts around how it was not fair that she has not been involved in his care and that she has rights too as his . I empathized and tried to explain that we tried to get him to involve her, but there was alot of resistance up until now. I told her we can talk further at the meeting. Dr. Salazar was also at the meeting. We revisited the above concern relayed by Mrs. North. It was obvious that she cares about their relationship and has been committed to trying to help and support him, but he pushes her away. During the entire meeting Winston was the most irritable and forceful that I have seen him. He would not stop pursuing his thoughts about her having an affair and how she wants him out of the house to have her "fling". Mrs. North shared that she left the house in 2012 due to his accusations and combative behavior towards her. She returned this past August after he had been having some siezure activity and needed more help. All this time, the accusations and his relationship towards her has remained the same. She talked about how it has effected her and her health and their children. She wishes things could be different. Talked about how this issue around his thought of her having an affair is not going to resolve and that they need to move forward with making small talk about other things if they are going to live under the same roof. Winston's daughter is living with them to help "keep the peace" according to Mrs. North. Talked about Winston attending IOP vs. outpatient with Dr. Hernandez. Winston was ambivalent. Mrs. North stated they are committed to helping him get there. Winston agreed to have the referral done after some discussion. He was also strongly encouraged to speak with his primary care doctor about his driving capacity. Mrs. North stated she and the family had been concerned about his driving due to the issues with his passing out. A doctor never formally told him he couldn't drive, but he should get approval based on what had been happening medically with him. After further discussion we decided to have Winston discharge tomorrow and have him go directly to IOP for intake. I called and scheduled an intake for 3pm. Mrs. North was informed and she will pick him up around 4:30 after work.
[2017-03-03 20:35] VITALS: BP 153/78
--- NOTE | 2017-03-03 22:11 | NUR ---
PATIENT ISOLATIVE IN ROOM ALL EVENING, EXCEPT FOR VITAL SIGNS; PLEASANT AND COOPERATIVE WHEN APPROACHED; VITAL SIGNS WNL; PATIENT COMPLETED PRE-DISCHARGE PAPERWORK; PATIENT DENIES S/I, H/I, A/H, AND V/H AT THIS TIME.
--- NOTE | 2017-03-04 07:05 | NUR ---
PATIENT SLEPT ALL NIGHT.
--- NOTE | 2017-03-04 07:55 | NUR ---
pt is scheduled for d/c to [facility] today. he reports and demonstrates improvement in his mood and ability to function. pt has an appt today with [facility] and agrees to follow up there. he denies any thoughts of suicide or self harm. he is calm and cooperative.pt continues to have some paranoid thoughts specifically r/t his which she states has been ongoing for a long time. pt is given education r/t managing his mood d/o and on preventing suicide
[2017-03-04 08:16] VITALS: BP 126/69
[2017-03-04 12:25] VITALS: BP 142/79
--- NOTE | 2017-03-04 13:26 | CP SOUTH PROGRESS NOTE PSYCH ---
Psych (Inpt) Progress Note Progress Note Include the following elements, when applicable: Involvement in the active treatment of the patient with behavioral observations of the patient and the patient's response to the treatment. Review of the ongoing treatment process in the context of the treatment plan. Indication of how multi-disciplinary staff members are carrying out the treatment plan. Plans for future interventions and recommendations for revision of the treatment plan. Liaison with other physicians/providers. Progress Note: PSYCHIATRIST NOTE (DISCHARGE), 03/04/2017: I discussed this patient's slow progress to date, current mental status, treatment and discharge plans with staff team today in the daily morning ITTM and met with him again myself in individual session prior to discharging him directly to intake with the [facility], on afternoon of discharge, 03/04/2017 at 3pm. Patient repeated his pledge that he would attend [facility]; we had pointed out that going to [facility] was a good way to begin to reverse his social isolation at home which had built up over recent month. Patient promised to do everything he can to "keep the peace" at home and concentrate on moving forward with whatever he and his longtime spouse can agree upon or share together and not dwell on the issues about which they disagree and which have caused them to move further and further apart; patient said he would avoid pointless arguing and aggrevation of his and spend as much time as possible enjoying his relationship with his son Winston Shoemaker and grandson Winston WHITLEY. 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 Patient was bright and cheerful today, euthymic, future-oriented, showing no evidence of suicidal or homicidal ideation, plans, intent or impulses and well aware of his safety plan should he in future come to believe he is at acute risk of harming himself or others. Patient denied any side effects related to his current medication regimen. I have called into [facility] on [facility] in [place], [place] on day of discharge, : Trilafon, 16mg: ii tabs nightly at HS (32mg/night); #28 with no refill (to clarify thinking) Lamictal, 100mg: ii tabs 2x/day (400mg daily); #56 with no refill (seizure prophylaxis/stable mood) I also called in for patient: amlodipine, 10mg: i tab daily (10mg/day); #14 with ONE refill (blood pressure managment) (patient planned to see his own PCP within 1-2 weeks of discharge and have blood pressure checked and current anti-hypertensive regimen reviewed and modified, if appropriate) (patient does not smoke tobacco or drink alcohol)
--- NOTE | 2017-03-04 13:27 | DISCHARGE SUMMARY REPORT-PSYCH ---
Visit Information Visit Dates/Diagnosis' Admission Date: 02/19/17 Discharge Date: 03/04/17 Reason for Admission: "When can I leave?" Psy Discharge Primary Diag: Delusional Disorder, Schizoaffective Disorder Psy Discharge Secondary Diag: R/O early cognitive impairment related to multifactorial dementing process(including effects diabetes, hypertension and other etiologies) Hospital Course Significant Lab Findings: glucose = 225; BUN = 32, creatinine = 2.2, GFR = 30; sodium = 136; triglycerides = 155, LDL = 104; rbc = 4.23, hgb = 11.6, hct = 34.1; KAREY = less than 10.0; urine for drugs of abuse--negative (for complete details of all normal range laboratory data from this admission, see the electronic medical record) Course Complications: none Consultations: patient was seen for an admission medical H&P and followed medically during this admission by Medhat Vaughn M.D.; he was also seen in endocrine consultation for his diabetes by Aristides Sharp M.D. (for details see consultation and progress notes in the electronic medical record) Allergies: Coded Allergies: No Known Allergies (02/18/17) Hospital Course/TX Response: (see also, all admission/initial assessments, daily M.D./MANAGER OF NETWORK and ASH KIER BOILER progress notes in the electronic medical record) Despite the presenting history of recent (command type) auditory hallucinations and degree of paranoia (centered on his spouse) patient's history suggested longstanding bipolar or schizoaffective disorder rather than schizophrenia. Patient had been prescribed 3 different anti-psychotic medications [employer] but was reduced to a single agent at time of admission; he was maintained off Risperdal and Seroquel and on titrating doses of Trilafon throughout this admission partly due to consideration of his already poorly controlled diabetes. Patient was maintained on mood stabilizer Lamictal but addition of Falconer was out of the question due to patient's age and current renal impairment. Family meetings were held on 02/27/2017 (with patient and son Jr. Winston) and 03/02/2017 (with patient and ); see progress notes of those dates for details. Patient remained in very good behavioral control and mental status largely clear save for continuing fixed delusions concerning spouse's alleged infidelity; however, he repeatedly denied to us and also in her presence that he harbored no intentions to harm her in any way and even accepted a ride home from her on discharge which she was willing to provide. Patient was strongly encouraged to begin his aftercare in the [facility]; his outpatient psychiatrist of the previous few months, Dr. Hernandez, concurred in that plan and expressed willingness to resume patient's care following his completion of programming at the [facility]. On date of discharge, patient was very pleasant, cordial, calm, euthymic, future-oriented, looking forward to returning home; there was no evidence of suicidal or homicidal ideation, plans, intent or impulses and patient was well aware of his safety plan should he ever in future become concerned of possibly being at acute risk of harming himself or others. Discharge HBIPS - Tobacco Use Treatment Offered Post DC Medications Offered: NA-No Tob Use >30 days Post DC Tobacco Treatment Plan: NA-No Tobacco use >30days - EtOH/Drug Use D/O Treatment Offered Post DC Medications Offered: NA-No EtOH/Drug Use D/O Post DC EtOH/SubAbuse TX Plan: NA-No EtOH/Drug Use D/O Metabolic Screening - Screen if on a Neuroleptic Medication - Metabolic screening should include: - Blood Pressure, BMI, Glucose or Hgb A1c, & a - Lipid profile from within the past 365 days. Metabolic Screening () Not Applicable, patient not on a neuroleptic. OR ([x]) Patient on a neuroleptic(s) . Enter below results for Glucose or Hemoglobin A1C, and lipid panel if obtained during the last 365 days. BMI: Blood Pressure: 142/79 Laboratory Results (If applicable): [x] glucose = 225 (all drawn on 02/18/2017) glycos hgb A1c = 10.4 cholesterol = 180 triglycerides = 155 HDL = 45 LDL = 104 Discharge Instructions General Discharge Information Discharge Medications: Discharge Medications (dose, route, frequency, indications): (see alsoChase discharge progress note of 03/04/2017) I called into [facility] on [facility] in [place], [place] on day of discharge, 2016: Trilafon, 16mg: ii tabs nightly at HS (32mg/night); #28 with no refill (to clarify paranoid thinking) Lamictal, 100mg: ii tabs 2x/day (400mg daily); #56 with no refill (seizure prophylaxis/stabilize mood/depression) I also called in for patient: amlodipine, 10mg: i tab daily (10mg/day); #14 with ONE refill (blood pressure managment/control) (patient planned to have an appointment with his own PCP within 1-2 weeks of discharge and have his blood pressure checked/anti-hypertensive regimen reviewed and adjusted, as necessary) (patient does not smoke tobacco or drink alcohol) Multiple Neuroleptics: ([x]) Not Applicable OR Document below three failed attempts at monotherapy, or a plan to taper to monotherapy, or augmentation of Clozapine. () Patient's Diet: controlled carb (per legal paraprofessional) Patient's Activity: without restrictions DC Disposition: to home with spouse Recommendations: I would recommend continuing/ongoing close monitoring of patient's mental status , his more or less fixed paranoid ideation in particular; I would advise continued close communication with patient's spouse and son Jr Winston. Current dose of Trilafon may require further adjustment; I would advise trying to avoid second generation anti-psychotic medications at this time due to patient's (until current admission and consultation with Dr. Sharp) poorly controlled diabetes. Referred To: Patient was referred directly/seamlessly to intake at the [facility] scheduled at 3:00pm on date of discharge, 03/04/2017. Copies To: COLT RUBALCAVA,FARHAT
--- NOTE | 2017-03-04 13:47 | SOCIAL WORKER PROG NOTE PSYCH ---
Social Work Progress Note Progress Note Asked Winston if he thought his son would be able to pick him up? He said he didn't think so, due to work but he would call and ask. Checked in with his later and he said he talked to his son and he couldn't do it. Encouraged him to keep things cordial with his on the ride home and to work on small talk with light subjects. Encouraged him to stay away from the topic of "the affair ". He said he understood and that he would work on this. Talked about IOP being a good place for him to get support and to be social with others. He is thinking that the afternoon track may work better for him. [place] was very complimentary about the treatment that he has had here. Wished him well.
[2017-03-04] MEDS ORDERED: NORVASC10 M1 PO (14:48)
[2017-03-04] MEDS ORDERED: LAMICTAL100 M2 PO (14:49)
[2017-03-04] MEDS ORDERED: PERPHENAZINE8 M1 PO (14:49)
--- NOTE | 2017-03-05 11:12 | IP INCIDENTAL NOTE PSYCH ---
Incidental Note Notation: Patient kept his inake appointment at [facility] yesterday, 03/04/2017 ( with Cheri) and is now scehduled to begin programming on 03/09/2017. I telephoned the office of his private psychiatrist, Dr. Hernandez ([phone]), to let them know this fact in view of his previously scheduled appointment with Dr. Hernandez for that same date and to let paralegal legal secretary know that clinicians from the [facility] would be in touch with him with regard to planning/aftercare.
== END 2017-03-04 15:05 | DRG 885 ==
LOC: ERH 18:27 → ERHI 02-19 14:05 → CP SOUTH 02-19 14:05 → EDPENDDISTM 03-04 16:00 → ENPENDDIS 03-04 23:59
PROVIDERS: Emergency Medicine; ADMIT Psychiatry & Neurology Psychiatry
DX: F25.9 Schizoaffective disorder, unspecified (principal); E11.44 Type 2 diabetes mellitus with diabetic amyotrophy; I10 Essential (primary) hypertension; Z79.4 Long term (current) use of insulin
CPT/HCPCS: 36415; 80307; 82436; 90834; G0480; J1815